=== PATIENT | female | born 1955 | race Caucasian/White ===

== ENCOUNTER 2017-04-05 11:52 | Emergency (ER) | payer MEDICARE, BC ==
[2017-04-05 12:17] VITALS: BP 136/78
--- NOTE | 2017-04-05 12:46 | EDM.PDOC ---
ED HPI GENERAL MEDICAL PROBLEM - General Chief Complaint: Respiratory Problem Stated Complaint: FEVER/COUGH Time Seen by Provider: 04/05/17 12:35 Source of Information: Reports: Patient History Limitations: Reports: No Limitations - History of Present Illness INITIAL COMMENTS - FREE TEXT/NARRATIVE: Patient is a 62-year-old female with a history of schizophrenia and mood disorder who presents to the ED complaining of a nonproductive cough that started earlier this weekend. Patient is a resident of [place] and thus had influenza testing and started on Tamiflu. Patient's influenza was negative. She was exposed to multiple family members with influenza during . Sister is present and states nursing staff was unable to control her fever. Highest temperature was reported 100.0F prior to Tylenol administration. Patient denies any fever/chills, nausea/vomiting, chest pain, shortness of breath, sore throat, sinus congestion, ear pain, abdominal pain, pain with urination, or any additional complaints. She's been eating and drinking well. - Related Data Allergies Allergy/AdvReac Type Severity Reaction Status Date / Time clindamycin Allergy Cannot Verified 04/05/17 12:18 Remember clozapine Allergy Cannot Verified 04/05/17 12:18 Remember cortisone Allergy Cannot Verified 04/05/17 12:18 Remember fluoxetine HCl [From Prozac] Allergy Cannot Verified 04/05/17 12:18 Remember hydrocodone Allergy Cannot Verified 04/05/17 12:18 Remember mirtazapine Allergy Cannot Verified 04/05/17 12:18 Remember Penicillins Allergy Cannot Verified 04/05/17 12:18 Remember sulfamethoxazole Allergy Cannot Verified 04/05/17 12:18 [From Bactrim] Remember trimethoprim Allergy Cannot Verified 04/05/17 12:18 Remember metals Allergy Cannot Uncoded 09/23/14 23:35 CDT Remember Home Meds: Home Meds Aspirin [Rosario Chewable Aspirin] 81 mg PO DAILY 03/19/14 [History] LORazepam [Ativan] 2 mg PO TID 03/19/14 [History] Oxybutynin [Oxybutynin ER] 10 mg PO BEDTIME 03/19/14 [History] atorvaSTATin [Lipitor] 20 mg PO ONETIME 03/19/14 [History] fluPHENAZine HCl [fluPHENAZine] 5 mg PO DAILY 03/19/14 [History] traZODone 300 mg PO DAILY 03/19/14 [History] fluPHENAZine Decanoate [Fluphenazine Decanoate] 15 mg PO BEDTIME 03/20/14 [ History] Acetaminophen [Tylenol] 650 mg PO DAILY 04/05/17 [History] Albuterol [Ventolin HFA] 2 puff INH BEDTIME 04/05/17 [History] Albuterol [Ventolin HFA] 2 puff INH Q4H PRN 04/05/17 [History] Amantadine HCl [Amantadine] 100 mg PO DAILY 04/05/17 [History] Benzonatate [Tessalon Perles] 200 mg PO BID PRN #20 cap 04/05/17 [Rx] Budesonide/Formoterol Fumarate [Symbicort 160-4.5 Mcg Inhaler] 2 puff INH BID [History] Cholecalciferol (Vitamin D3) [Vitamin D3] 5,000 units PO DAILY 04/05/17 [History ] Cranberry Conc/C/Bacill Coag [Cranberry Tablet] 1 tab PO BID 04/05/17 [History] Cyanocobalamin (Vitamin B12) [Vitamin B12] 1,000 mcg PO DAILY 04/05/17 [History] Docusate Sodium [Colace] 100 mg PO BID 04/05/17 [History] Etodolac [Lodine] 400 mg PO Q8H PRN 04/05/17 [History] Liraglutide [Victoza] 1.2 mg SUBCUT BEDTIME 04/05/17 [History] Losartan [Cozaar] 50 mg PO DAILY 04/05/17 [History] Metoprolol Succinate [Toprol XL] 75 mg PO DAILY 04/05/17 [History] OLANZapine [ZyPREXA] 20 mg PO BID 04/05/17 [History] Omeprazole 20 mg PO DAILY 04/05/17 [History] Oseltamivir [Tamiflu] 75 mg PO BID 04/05/17 [History] metFORMIN [Glucophage XR] 1,000 mg PO BID 04/05/17 [History] Past Medical History HEENT History: Reports: Impaired Vision Other Neuro History: mood disorder Psychiatric History: Reports: Schizophrenia, Suicide Attempt Social & Family History - Tobacco Use Smoking Status *Q: Never Smoker Second Hand Smoke Exposure: No - Caffeine Use Caffeine Use: Reports: Coffee - Alcohol Use Days Per Week of Alcohol Use: 0 - Recreational Drug Use Recreational Drug Use: No ED ROS GENERAL - Review of Systems Review Of Systems: See Below Constitutional: Denies: Fever, Chills, Decreased Appetite HEENT: Reports: No Symptoms Respiratory: Reports: Cough. Denies: Shortness of Breath, Sputum Cardiovascular: Reports: No Symptoms GI/Abdominal: Reports: No Symptoms : Reports: No Symptoms Musculoskeletal: Reports: No Symptoms Skin: Reports: No Symptoms ED EXAM, GENERAL - Physical Exam Exam: See Below Exam Limited By: No Limitations General Appearance: Alert, WD/WN, No Apparent Distress Eye Exam: Bilateral Eye: PERRL Ears: Hearing Grossly Normal, Other (Canals occluded by cerumen.) Nose: Normal Inspection, Normal Mucosa, No Blood. No: Nasal Drainage, Clear Rhinorrhea Throat/Mouth: Normal Inspection, Normal Oropharynx, Normal Voice, No Airway Compromise Neck: Normal Inspection, Supple Respiratory/Chest: No Respiratory Distress, Lungs Clear, Normal Breath Sounds, No Accessory Muscle Use, Chest Non-Tender Cardiovascular: Normal Peripheral Pulses, Regular Rate, Rhythm Peripheral Pulses: 4+: Radial (R) GI/Abdominal: Normal Bowel Sounds, Soft, Non-Tender, No Organomegaly, No Distention Back Exam: Normal Inspection Extremities: Normal Inspection, Non-Tender, No Pedal Edema, Normal Capillary Refill Neurological: Alert, Oriented, CN II-XII Intact, Normal Cognition, No Motor/ Sensory Deficits Psychiatric: Normal Affect, Normal Mood Skin Exam: Warm, Dry, Intact, Normal Color, No Rash Course - Vital Signs Last Recorded V/S: Last Vital Signs Temp 98.4 F 04/05/17 12:12 Pulse 96 04/05/17 12:12 Resp 20 04/05/17 12:12 BP 136/78 04/05/17 12:12 Pulse Ox 96 04/05/17 12:12 - Orders/Labs/Meds Orders: Active Orders 24 hr Category Date Time Status Ear Irrigation [RC] ASDIRECTED Care 04/05/17 12:44 Active Labs: Laboratory Tests 04/05/17 04/05/17 Range/Units 13:00 13:00 WBC 3.83 L (3.98-10.04) K/mm3 RBC 4.25 (3.98-5.22) M/mm3 Hgb 12.1 (11.2-15.7) gm/L Hct 36.8 (34.1-44.9) % MCV 86.6 (79.4-94.8) fl MCH 28.5 (25.6-32.2) pg MCHC 32.9 (32.2-35.5) g/dl RDW Std Deviation 45.0 (36.4-46.3) fL Plt Count 138 L (182-369) K/mm3 MPV 10.5 (9.4-12.3) fl Neut % (Auto) 51.2 (34.0-71.1) % Lymph % (Auto) 27.9 (19.3-51.7) % [place] % (Auto) 19.6 H (4.7-12.5) % Eos % (Auto) 0.3 L (0.7-5.8) Baso % (Auto) 0.5 (0.1-1.2) % Neut # (Auto) 1.96 (1.56-6.13) K/mm3 Lymph # (Auto) 1.07 L (1.18-3.74) K/mm3 [place] # (Auto) 0.75 H (0.24-0.36) K/mm3 Eos # (Auto) 0.01 L (0.04-0.36) K/mm3 Baso # (Auto) 0.02 (0.01-0.08) K/mm3 Manual Slide Review Normal smear Sodium 141 (136-145) mEq/L Potassium 3.9 (3.5-5.1) mEq/L Chloride 106 (98-107) mEq/L Carbon Dioxide 25 (21-32) mEq/L Anion Gap 13.9 (5-15) BUN 9 (7-18) mg/dL Creatinine 0.7 (0.55-1.02) mg/dL Est Cr Clr Drug Dosing 67.59 mL/min Estimated GFR (MDRD) > 60 (>60) mL/min BUN/Creatinine Ratio 12.9 L (14-18) Glucose 153 H (74-106) mg/dL Calcium 9.0 (8.5-10.1) mg/dL Total Bilirubin 0.4 (0.2-1.0) mg/dL AST 130 H (15-37) U/L ALT 149 H (14-59) U/L Alkaline Phosphatase 135 H (46-116) U/L C-Reactive Protein 3.4 H* (<1.0) mg/dL Total Protein 6.5 (6.4-8.2) g/dl Albumin 3.7 (3.4-5.0) g/dl Globulin 2.8 gm/dL Albumin/Globulin Ratio 1.3 (1-2) - Re-Assessments/Exams Free Text/Narrative Re-Assessment/Exam: Will obtain chest x-ray two-view along with basic labs including: CBC, CRP, and chem 14. Bilateral cerumen impaction. Ordered irrigation. CXR: reviewed with Dr. Martinez. No acute findings noted. Labs reviewed: White blood cell count 3.83, hemoglobin 12.1, platelet counts 138 , monocyte percentage is mildly elevated along with the monocyte number with normal smear. Chemistry panel revealed: Sodium 141, potassium 3.9, AG 13.9, creatinine 0.7, glucose 153, AST 130, ALT 149, ALK phos 135. LFTs mildly elevated. CRP 3.4. Suspect cause of elevated LFTs is secondary to patient taking Tamiflu. SHe is also been taking acetaminophen. Reassessment, patient is doing well. Will discharge patient home with instructions as documented. Departure - Departure Time of Disposition: 14:23 Disposition: Home, Self-Care 01 Condition: Good Clinical Impression: Bronchitis, Elevated LFTs - Discharge Information Prescriptions: Benzonatate [Tessalon Perles] 200 mg PO BID PRN #20 cap PRN Reason: Cough Instructions: Acute Bronchitis, [id number] Referrals: Paco Hand MD [Primary Care Provider] - Forms: ED Department Discharge Additional Instructions: Continue taking the albuterol inhaler and budesonide as prescribed. Push the fluids. Ensure adequate rest. Follow-up with PCP for reevaluation the end of this week or first part of next week. Continue taking the Tamiflu as prescribed and acetaminophen for any fevers or discomfort. LFTs were mildly elevated thus suggest routine follow-up to ensure they trend downward. Return to the ED if you develop any new or worsening symptoms. Take the Tessalon Perles as prescribed for cough suppression. - My Orders Last 24 Hours: My Active Orders 04/05/17 12:44 Ear Irrigation [RC] ASDIRECTED - Assessment/Plan Last 24 Hours: My Active Orders 04/05/17 12:44 Ear Irrigation [RC] ASDIRECTED
--- NOTE | 2017-04-05 13:26 | CR ---
Chest: Two views of the chest were obtained. Comparison: No previous chest x-ray. Limited inspiratory study is noted. Within this limitation, lungs are felt to be clear. Heart size and mediastinum are normal. Bony structures are within normal limits for the patient's age. Impression: 1. Limited inspiratory study. Within these limitations, nothing acute is suspected. Diagnostic code #2
== END 2017-04-05 14:55 | disposition home or self-care (01) ==
LOC: JD.ED 11:52
DX: J40 Bronchitis, not specified as acute or chronic (principal); R94.5 Abnormal results of liver function studies; Z79.82 Long term (current) use of aspirin; Z79.899 Other long term (current) drug therapy; Z88.2 Allergy status to sulfonamides; Z88.8 Allergy status to other drugs, medicaments and biological substances; Z91.09 Other allergy status, other than to drugs and biological substances; Z88.1 Allergy status to other antibiotic agents; Z88.6 Allergy status to analgesic agent; Z88.0 Allergy status to penicillin
CPT/HCPCS: 36415; 71020; 71020-26; 80053; 85025; 86140; 99283; 99284

== ENCOUNTER 2017-06-10 17:40 | Inpatient (IN) | payer MEDICARE, BC, MEDICAID ==
[2017-06-10] MEDS ORDERED: Sodium Chloride 0.9% 10 ML Syringe FLUSH PRN (18:02)
[2017-06-10] MEDS ORDERED: Albuterol/Ipratropium 3.0-0.5 MG/3 ML Neb Soln NEB ONE (18:04)
[2017-06-10] MEDS: Sodium Chloride 0.9% 1,000 ML IV SCH (18:28)
--- NOTE | 2017-06-10 18:56 | EDM.PDOC ---
ED HPI GENERAL MEDICAL PROBLEM - General Chief Complaint: Respiratory Problem Stated Complaint: RESPIRATORY ISSUES Time Seen by Provider: 06/10/17 17:57 Source of Information: Reports: Patient, Family, Longterm Records History Limitations: Reports: No Limitations - History of Present Illness INITIAL COMMENTS - FREE TEXT/NARRATIVE: The patient presents with a cough and fever. This has been going on for over a week. She is a resident of [facility]. She sees Dr Hand and he started her on a z-zuleima. She has a couple days left but she is not any better. She feels short of breath. She does not smoke. She has a history of asthma as a child. She also has redness to her eye and she was put on gentamicin but that was not started. She has no chest pain, abdominal pain, nausea or vomiting. Onset: Gradual Duration: Week(s): (1) Severity: Moderate Improves with: Reports: None Worsens with: Reports: None Associated Symptoms: Reports: Cough, Fever/Chills, Shortness of Breath. Denies : Chest Pain, Headaches, Nausea/Vomiting Throat Pain Score (Numeric/FACES): 8 - Related Data Allergies Allergy/AdvReac Type Severity Reaction Status Date / Time clindamycin Allergy Cannot Verified 06/10/17 17:53 Remember clozapine Allergy Cannot Verified 06/10/17 17:53 Remember cortisone Allergy Cannot Verified 06/10/17 17:53 Remember fluoxetine HCl [From Prozac] Allergy Cannot Verified 06/10/17 17:53 Remember hydrocodone Allergy Cannot Verified 06/10/17 17:53 Remember mirtazapine Allergy Cannot Verified 06/10/17 17:53 Remember Penicillins Allergy Cannot Verified 06/10/17 17:53 Remember sulfamethoxazole Allergy Cannot Verified 06/10/17 17:53 [From Bactrim] Remember trimethoprim Allergy Cannot Verified 06/10/17 17:53 Remember metals Allergy Cannot Uncoded 09/23/14 23:35 CDT Remember Home Meds: Home Meds Aspirin [Rosario Chewable Aspirin] 81 mg PO DAILY 03/19/14 [History] Oxybutynin [Oxybutynin ER] 10 mg PO BEDTIME 03/19/14 [History] atorvaSTATin [Lipitor] 20 mg PO ONETIME 03/19/14 [History] traZODone 300 mg PO DAILY 12/10/14 [History] fluPHENAZine Decanoate [Fluphenazine Decanoate] 15 mg PO BEDTIME 03/20/14 [ History] Acetaminophen [Tylenol] 650 mg PO DAILY 04/05/17 [History] Albuterol [Ventolin HFA] 2 puff INH BEDTIME 04/05/17 [History] Albuterol [Ventolin HFA] 2 puff INH Q4H PRN 04/05/17 [History] Benzonatate [Tessalon Perles] 200 mg PO BID PRN #20 cap 04/05/17 [Rx] Budesonide/Formoterol Fumarate [Symbicort 160-4.5 Mcg Inhaler] 2 puff INH BID [History] Cholecalciferol (Vitamin D3) [Vitamin D3] 5,000 units PO DAILY 04/05/17 [History ] Cranberry Conc/C/Bacill Coag [Cranberry Tablet] 1 tab PO BID 04/05/17 [History] Cyanocobalamin (Vitamin B12) [Vitamin B12] 1,000 mcg PO DAILY 04/05/17 [History] Docusate Sodium [Colace] 100 mg PO BID 04/05/17 [History] Liraglutide [Victoza] 1.2 mg SUBCUT BEDTIME 04/05/17 [History] Metoprolol Succinate [Toprol XL] 75 mg PO DAILY 04/05/17 [History] OLANZapine [ZyPREXA] 20 mg PO BID 04/05/17 [History] Omeprazole 20 mg PO DAILY 04/05/17 [History] metFORMIN [Glucophage XR] 1,000 mg PO BID 04/05/17 [History] Albuterol Sulfate 2.5 mg IH QID PRN 06/10/17 [History] Azithromycin [Zithromax] 250 mg PO DAILY 06/10/17 [History] Gentamicin Sulfate/PF [Gentamicin] 3 drop EYELF BID 06/10/17 [History] guaiFENesin [Mucinex] 600 mg PO BID 06/10/17 [History] Past Medical History HEENT History: Reports: Impaired Vision Other Neuro History: mood disorder Psychiatric History: Reports: Schizophrenia, Suicide Attempt - Infectious Disease History Infectious Disease History: Reports: Other (See Below) Other Infectious Disease History: lives in longterm Social & Family History - Tobacco Use Smoking Status *Q: Never Smoker Second Hand Smoke Exposure: No - Caffeine Use Caffeine Use: Reports: Coffee - Alcohol Use Days Per Week of Alcohol Use: 0 - Recreational Drug Use Recreational Drug Use: No ED ROS GENERAL - Review of Systems Review Of Systems: See Below Constitutional: Reports: Fever, Chills HEENT: Reports: No Symptoms Respiratory: Reports: Shortness of Breath, Cough Cardiovascular: Reports: No Symptoms Endocrine: Reports: No Symptoms GI/Abdominal: Reports: No Symptoms : Reports: No Symptoms Musculoskeletal: Reports: No Symptoms ED EXAM, GENERAL - Physical Exam Exam: See Below Exam Limited By: No Limitations General Appearance: Alert, No Apparent Distress Eye Exam: Bilateral Eye: Other (Conjunctiva is injected on the left with some erythema of the eyelids.) Ears: Normal External Exam Nose: Normal Inspection Head: Atraumatic, Normocephalic Neck: Normal Inspection Respiratory/Chest: No Respiratory Distress, Rhonchi Cardiovascular: Regular Rate, Rhythm, No Edema, No Murmur GI/Abdominal: Soft, Non-Tender, No Organomegaly, No Mass Back Exam: Normal Inspection Extremities: Normal Inspection Course - Vital Signs Last Recorded V/S: Last Vital Signs Temp 97.5 F 06/10/17 18:00 Pulse 106 H 06/10/17 18:00 Resp BP 120/105 H 06/10/17 18:00 Pulse Ox 92 L 06/10/17 18:45 - Orders/Labs/Meds Orders: Active Orders 24 hr Category Date Time Status Cardiac Monitoring [RC] . DIRECTED Care 06/10/17 18:02 Active Oxygen Therapy [RC] PRN Care 06/10/17 18:02 Active Peripheral IV Care [RC] . DIRECTED Care 06/10/17 18:03 Active RT Aerosol Therapy [RC] ASDIRECTED Care 06/10/17 18:04 Active Chest 1V Frontal [CR] Stat Exams 06/10/17 18:03 Taken CULTURE BLOOD [BC] Stat Lab 06/10/17 18:16 Received CULTURE BLOOD [BC] Stat Lab 06/10/17 18:16 Received Sodium Chloride 0.9% [Normal Saline] 1,000 ml Med 06/10/17 18:15 Active IV ASDIRECTED Sodium Chloride 0.9% [Saline Flush] Med 06/10/17 18:02 Active 10 ml FLUSH ASDIRECTED PRN cefTRIAXone [Rocephin] 2 gm Med 06/10/17 18:57 Active Sodium Chloride 0.9% [Normal Saline] 100 ml IV ONETIME Blood Culture x2 Reflex Set [OM.PC] Stat Oth 06/10/17 18:03 Ordered Peripheral IV Insertion Adult [OM.PC] Stat Oth 06/10/17 18:02 Ordered Medication Orders Sodium Chloride (Normal Saline) 1,000 mls @ 125 mls/hr IV ASDIRECTED RAVINDRA Last Admin: 06/10/17 18:28 Dose: 125 mls/hr Ceftriaxone Sodium 2 gm/ (Sodium Chloride) 100 mls @ 100 mls/hr IV ONETIME ONE Stop: 06/10/17 19:56 Last Admin: 06/10/17 19:06 Dose: 100 mls/hr Sodium Chloride (Saline Flush) 10 ml FLUSH ASDIRECTED PRN PRN Reason: Keep Vein Open Last Admin: 06/10/17 18:28 Dose: 10 ml Labs: Laboratory Tests 06/10/17 06/10/17 Range/Units 18:16 18:16 WBC 6.75 (3.98-10.04) K/mm3 RBC 4.61 (3.98-5.22) M/mm3 Hgb 12.6 (11.2-15.7) gm/L Hct 39.9 (34.1-44.9) % MCV 86.6 (79.4-94.8) fl MCH 27.3 (25.6-32.2) pg MCHC 31.6 L (32.2-35.5) g/dl RDW Std Deviation 46.6 H (36.4-46.3) fL Plt Count 227 (182-369) K/mm3 MPV 10.3 (9.4-12.3) fl Neut % (Auto) 53.6 (34.0-71.1) % Lymph % (Auto) 27.9 (19.3-51.7) % [place] % (Auto) 17.0 H (4.7-12.5) % Eos % (Auto) 0.1 L (0.7-5.8) Baso % (Auto) 0.7 (0.1-1.2) % Neut # (Auto) 3.61 (1.56-6.13) K/mm3 Lymph # (Auto) 1.88 (1.18-3.74) K/mm3 [place] # (Auto) 1.15 H (0.24-0.36) K/mm3 Eos # (Auto) 0.01 L (0.04-0.36) K/mm3 Baso # (Auto) 0.05 (0.01-0.08) K/mm3 Manual Slide Review Normal smear Sodium 143 (136-145) mEq/L Potassium 4.0 (3.5-5.1) mEq/L Chloride 107 (98-107) mEq/L Carbon Dioxide 29 (21-32) mEq/L Anion Gap 11.0 (5-15) BUN 12 (7-18) mg/dL Creatinine 0.9 (0.55-1.02) mg/dL Est Cr Clr Drug Dosing 52.57 mL/min Estimated GFR (MDRD) > 60 (>60) mL/min BUN/Creatinine Ratio 13.3 L (14-18) Glucose 150 H (74-106) mg/dL Calcium 9.1 (8.5-10.1) mg/dL Total Bilirubin 0.5 (0.2-1.0) mg/dL AST 57 H (15-37) U/L ALT 83 H (14-59) U/L Alkaline Phosphatase 133 H (46-116) U/L Total Protein 6.9 (6.4-8.2) g/dl Albumin 3.5 (3.4-5.0) g/dl Globulin 3.4 gm/dL Albumin/Globulin Ratio 1.0 (1-2) Meds: Medications Generic Name Dose Route Start Last Admin Trade Name Freq PRN Reason Stop Dose Admin Sodium Chloride 1,000 mls @ 125 mls/hr 06/10/17 18:15 06/10/17 18:28 Normal Saline IV 125 mls/hr ASDIRECTED RAVINDRA Administration Ceftriaxone Sodium 2 gm/ 100 mls @ 100 mls/hr 06/10/17 18:57 06/10/17 19:06 Sodium Chloride IV 06/10/17 19:56 100 mls/hr ONETIME ONE Administration Sodium Chloride 10 ml 06/10/17 18:02 06/10/17 18:28 Saline Flush FLUSH 10 ml ASDIRECTED PRN Administration Keep Vein Open Discontinued Medications Generic Name Dose Route Start Last Admin Trade Name Freq PRN Reason Stop Dose Admin Albuterol/Ipratropium 3 ml 06/10/17 18:04 06/10/17 18:43 Duoneb 3.0-0.5 Mg/3 Ml NEB 06/10/17 18:05 3 ml ONETIME ONE Administration - Re-Assessments/Exams Free Text/Narrative Re-Assessment/Exam: 06/10/17 18:55 I ordered an IV NS at 125mL/hr, labs, CXR, duoneb, blood cultures and influenza. 06/10/17 19:01 Her CBC looks good. Her glucose is elevated at 150. Her AST and ALT were elevated. Her CXR shows very poor inspiration. There may be an infiltrate in the right middle lobe. Her influenza is negative. I went back to talk to her and her oxygen saturations were 88% on room air. I put he on 2L by OK and I ordered rocephin 2 gram IV. I feel she needs to be admitted. I called Dr Vann and she accepted the patient. Departure - Departure Time of Disposition: 19:15 Disposition: Admitted As Inpatient 68 Condition: Fair Clinical Impression: Elevated LFTs, Hypoxia, Failure of outpatient treatment Pneumonia Qualifiers: Pneumonia type: due to unspecified organism Laterality: right Lung location: middle lobe of lung Qualified Code(s): J18.1 - Lobar pneumonia, unspecified organism - Discharge Information Referrals: Paco Hand MD [Primary Care Provider] - Forms: ED Department Discharge - My Orders Last 24 Hours: My Active Orders 06/10/17 18:02 Cardiac Monitoring [RC] . DIRECTED Oxygen Therapy [RC] PRN Sodium Chloride 0.9% [Saline Flush] 10 ml FLUSH ASDIRECTED PRN Peripheral IV Insertion Adult [OM.PC] Stat 06/10/17 18:03 Peripheral IV Care [RC] . DIRECTED Chest 1V Frontal [CR] Stat Blood Culture x2 Reflex Set [OM.PC] Stat 06/10/17 18:04 RT Aerosol Therapy [RC] ASDIRECTED 06/10/17 18:15 Sodium Chloride 0.9% [Normal Saline] 1,000 ml IV ASDIRECTED 06/10/17 18:16 CULTURE BLOOD [BC] Stat CULTURE BLOOD [BC] Stat 06/10/17 18:57 cefTRIAXone [Rocephin] 2 gm Sodium Chloride 0.9% [Normal Saline] 100 ml IV ONETIME - Assessment/Plan Last 24 Hours: My Active Orders 06/10/17 18:02 Cardiac Monitoring [RC] . DIRECTED Oxygen Therapy [RC] PRN Sodium Chloride 0.9% [Saline Flush] 10 ml FLUSH ASDIRECTED PRN Peripheral IV Insertion Adult [OM.PC] Stat 06/10/17 18:03 Peripheral IV Care [RC] . DIRECTED Chest 1V Frontal [CR] Stat Blood Culture x2 Reflex Set [OM.PC] Stat 06/10/17 18:04 RT Aerosol Therapy [RC] ASDIRECTED 06/10/17 18:15 Sodium Chloride 0.9% [Normal Saline] 1,000 ml IV ASDIRECTED 06/10/17 18:16 CULTURE BLOOD [BC] Stat CULTURE BLOOD [BC] Stat 06/10/17 18:57 cefTRIAXone [Rocephin] 2 gm Sodium Chloride 0.9% [Normal Saline] 100 ml IV ONETIME
[2017-06-10] MEDS ORDERED: cefTRIAXone 2 GM in Sodium Chloride 0.9% 100 ML IV ONE (18:57)
--- NOTE | 2017-06-10 20:31 | PCM.HP ---
H&P History of Present Illness - General Date of Service: 06/10/17 Admit Problem/Dx: Admission Diagnosis/Problem Admission Diagnosis/Problem Pneumonia Source of Information: Provider History Limitations: Reports: No Limitations - History of Present Illness Initial Comments - Free Text/Narative: 62 year old [place] resident at [place] presents with fever and chills. She complains of a cough with sputum; there has been no improvement after a Z pack. There is a questionable RML infiltrate. The pulse oximetry documented an O2 saturation of 88%. She will be admitted to [facility] for failed OP therapy. Onset of Symptoms: Reports: Gradual Symptom Onset Date: 06/07/17 Duration of Symptoms: Reports: Day(s):, Getting Worse Location: Reports: Chest, Generalized Severity: Moderate Improves with: Reports: Medication Worsens with: Reports: None Context: Reports: Sick Contact Associated Symptoms: Reports: cough w sputum, Fever/Chills, Loss of Appetite, Malaise, Nausea/Vomiting, Shortness of Breath, Weakness Throat Pain Score (Numeric/FACES): 8 - Related Data Allergies/Adverse Reactions: Allergies Allergy/AdvReac Type Severity Reaction Status Date / Time clindamycin Allergy Cannot Verified 06/11/17 12:36 Remember clozapine Allergy Cannot Verified 06/11/17 12:36 Remember cortisone Allergy Cannot Verified 06/11/17 12:36 Remember fluoxetine HCl [From Prozac] Allergy Cannot Verified 06/11/17 12:36 Remember hydrocodone Allergy Cannot Verified 06/11/17 12:36 Remember mirtazapine Allergy Cannot Verified 06/11/17 12:36 Remember Penicillins Allergy Cannot Verified 06/11/17 12:36 Remember sulfamethoxazole Allergy Cannot Verified 06/11/17 12:36 [From Bactrim] Remember trimethoprim Allergy Cannot Verified 06/11/17 12:36 Remember metals Allergy Cannot Uncoded 06/11/17 12:36 Remember Home Medications: Home Meds Aspirin [Rosario Chewable Aspirin] 81 mg PO DAILY 03/19/14 [History] Oxybutynin [Oxybutynin ER] 10 mg PO BEDTIME 03/19/14 [History] atorvaSTATin [Lipitor] 20 mg PO DAILY 03/19/14 [History] traZODone 300 mg PO DAILY 03/19/14 [History] fluPHENAZine Decanoate [Fluphenazine Decanoate] 15 mg PO BEDTIME 12/11/14 [ History] Acetaminophen [Tylenol] 650 mg PO DAILY 04/05/17 [History] Albuterol [Ventolin HFA] 2 puff INH BEDTIME 04/05/17 [History] Albuterol [Ventolin HFA] 2 puff INH Q4H PRN 04/05/17 [History] Budesonide/Formoterol Fumarate [Symbicort 160-4.5 Mcg Inhaler] 2 puff INH BID [History] Cholecalciferol (Vitamin D3) [Vitamin D3] 5,000 units PO DAILY 04/05/17 [History ] Cranberry Conc/C/Bacill Coag [Cranberry Tablet] 1 tab PO BID 04/05/17 [History] Cyanocobalamin (Vitamin B12) [Vitamin B12] 1,000 mcg PO DAILY 04/05/17 [History] Docusate Sodium [Colace] 100 mg PO BID 04/05/17 [History] Liraglutide [Victoza] 1.2 mg SUBCUT BEDTIME 04/05/17 [History] Metoprolol Succinate [Toprol XL] 75 mg PO DAILY 04/05/17 [History] OLANZapine [ZyPREXA] 20 mg PO BID 04/05/17 [History] Omeprazole 20 mg PO DAILY 04/05/17 [History] metFORMIN [Glucophage XR] 1,000 mg PO BID 04/05/17 [History] Albuterol Sulfate 2.5 mg IH QID PRN 06/10/17 [History] Azithromycin [Zithromax] 250 mg PO DAILY 06/10/17 [History] Benzonatate 100 mg PO TID PRN 06/10/17 [History] Gentamicin Sulfate/PF [Gentamicin] 3 drop EYELF BID 06/10/17 [History] guaiFENesin [Mucinex] 600 mg PO BID 06/10/17 [History] Past Medical History HEENT History: Reports: Impaired Vision Other Neuro History: mood disorder Psychiatric History: Reports: Schizophrenia, Suicide Attempt - Infectious Disease History Infectious Disease History: Reports: Other (See Below) Other Infectious Disease History: [place] Social & Family History - Tobacco Use Smoking Status *Q: Never Smoker Second Hand Smoke Exposure: No - Caffeine Use Caffeine Use: Reports: Coffee - Alcohol Use Days Per Week of Alcohol Use: 0 - Recreational Drug Use Recreational Drug Use: No H&P Review of Systems - Review of Systems: Review Of Systems: See Below General: Reports: Fever, Chills, Malaise, Weakness, Decreased Appetite HEENT: Reports: No Symptoms Pulmonary: Reports: Shortness of Breath, Pleuritic Chest Pain Cardiovascular: Reports: No Symptoms Gastrointestinal: Reports: No Symptoms Genitourinary: Reports: No Symptoms Musculoskeletal: Reports: No Symptoms Skin: Reports: No Symptoms Psychiatric: Reports: No Symptoms Neurological: Reports: No Symptoms Hematologic/Lymphatic: Reports: No Symptoms Immunologic: Reports: No Symptoms Exam - Exam Exam: See Below - Vital Signs Vital Signs: Last Vital Signs Temp 36.4 C 06/10/17 18:00 Pulse 106 H 06/10/17 18:00 Resp BP 120/105 H 06/10/17 18:00 Pulse Ox 95 06/10/17 19:07 Weight: 105.233 kg - Exam Quality Assessment: Supplemental Oxygen, DVT Prophylaxis General: Alert, Oriented, Cooperative HEENT: Conjunctiva Clear, Nares Patent, Normal Nasal Septum, Pupils Equal, Pupils Reactive, PERRLA Neck: Trachea Midline Lungs: Normal Respiratory Effort, Decreased Breath Sounds, Rhonchi, Wheezing Cardiovascular: Regular Rate, Regular Rhythm GI/Abdominal Exam: Normal Bowel Sounds, Soft, Non-Tender, No Organomegaly, No Distention (Female) Exam: Deferred Rectal (Female) Exam: Deferred Back Exam: Normal Inspection Extremities: Normal Inspection, Normal Range of Motion, Non-Tender, No Pedal Edema Skin: Warm Neurological: Cranial Nerves Intact, Normal Speech Neuro Extensive - Mental Status: Alert, Oriented x3, Normal Mood/Affect, Normal Cognition, Memory Intact Neuro Extensive - Motor, Sensory, Reflexes: CN II-XII Intact Psychiatric: Alert, Normal Affect, Normal Mood - Patient Data Result Diagrams: 06/11/17 06:30 06/11/17 06:30 *Q Meaningful Use (ADM) - VTE *Q VTE Criteria *Q: - Stroke *Q Stroke Criteria *Q: - AMI *Q AMI Criteria *Q: - Problem List (1) Failure of outpatient treatment SNOMED Code(s): 865475992 ICD Code: Z78.9 - OTHER SPECIFIED HEALTH STATUS Status: Acute Current Visit: Yes (2) Hypoxia SNOMED Code(s): 512407715 ICD Code: R09.02 - HYPOXEMIA Status: Acute Current Visit: Yes (3) Pneumonia SNOMED Code(s): 545359257 ICD Code: J18.9 - PNEUMONIA, UNSPECIFIED ORGANISM Status: Acute Current Visit: Yes Qualifiers: Pneumonia type: due to unspecified organism Laterality: right Lung location: middle lobe of lung Qualified Code(s): J18.1 - Lobar pneumonia, unspecified organism Problem List Initiated/Reviewed/Updated: Yes Orders Last 24hrs: Active Orders 24 hr Category Date Time Status UA W/MICROSCOPIC [URIN] Routine Lab 06/10/17 20:26 Ordered Medication Orders Sodium Chloride (Normal Saline) 1,000 mls @ 125 mls/hr IV ASDIRECTED RAVINDRA Last Admin: 06/10/17 18:28 Dose: 125 mls/hr Sodium Chloride (Saline Flush) 10 ml FLUSH ASDIRECTED PRN PRN Reason: Keep Vein Open Last Admin: 06/10/17 18:28 Dose: 10 ml Assessment/Plan Comment:: Impression: SNF resident with PNA (RML/LLL) associated with hypoxia Failed outpatient treatment with Z pack History of Schizoaffective disorder DM type II HLD Plan: IVF IV ATBs NEBS as needed CXR 2 view Pulmonary Toilet Home meds Daily labs Consult PT/OT/CM DVT/GI prophylaxis
[2017-06-10] MEDS ORDERED: 50% Dextrose in Water 50 ML Syringe IVPUSH PRN (20:35)
[2017-06-10] MEDS ORDERED: Albuterol 0.083% 2.5 MG/3 ML Neb Soln NEB PRN (20:39)
[2017-06-10] MEDS ORDERED: Acetaminophen Soln 650 MG/20.3 ML UD Cup PO PRN (20:50)
[2017-06-10] MEDS ORDERED: LIRAGLUTIDE 1.2 MG SUBCUT SCH (21:00)
[2017-06-10] MEDS ORDERED: Budesonide/Formoterol 160-4.5 MCG/Puff 6 GM Inhaler INH SCH (21:00)
[2017-06-10] MEDS: Levofloxacin/Dextrose 5%-Water 750 MG in Premix Bag 1 BAG IV SCH (21:40)
[2017-06-10] MEDS: Insulin Aspart 100 Units/ML 3 ML Pen SUBCUT SCH (21:42)
[2017-06-10] MEDS: Docusate Sodium 100 MG Cap PO SCH (21:45)
[2017-06-10] MEDS: guaiFENesin 600 MG Tab.ER PO SCH (21:45)
[2017-06-10] MEDS: metFORMIN 500 MG Tab PO SCH (21:46)
[2017-06-10] MEDS: OLANZapine 5 MG Tab PO SCH (21:47)
[2017-06-10] MEDS: Oxybutynin 5 MG Tab.ER PO SCH (21:48)
[2017-06-10] MEDS: Benzonatate 100 MG Cap PO PRN (21:48)
[2017-06-10] MEDS: Albuterol/Ipratropium 3.0-0.5 MG/3 ML Neb Soln NEB SCH (21:55)
[2017-06-11] MEDS: Sodium Chloride 0.9% 1,000 ML IV SCH ×2 (01:43→09:34)
[2017-06-11] MEDS: Insulin Aspart 100 Units/ML 3 ML Pen SUBCUT SCH ×4 (08:09→21:30)
[2017-06-11] MEDS: Albuterol/Ipratropium 3.0-0.5 MG/3 ML Neb Soln NEB SCH ×4 (08:43→20:23)
[2017-06-11] MEDS: Formoterol/Mometasone 200-5 MCG 8.8 GM Inhaler IH SCH ×2 (08:44→20:23)
[2017-06-11] MEDS: Enoxaparin 40 MG/0.4 ML Syringe SUBCUT SCH (09:35)
[2017-06-11] MEDS: Gentamicin 0.3% Ophth Soln 15 ML Bottle EYELF SCH ×3 (09:35→21:32)
[2017-06-11] MEDS: Cholecalciferol (Vitamin D3) 1,000 Unit Tab PO SCH (09:36)
[2017-06-11] MEDS: Docusate Sodium 100 MG Cap PO SCH ×2 (09:36→21:29)
[2017-06-11] MEDS: traZODone 50 MG Tab PO SCH (09:36)
[2017-06-11] MEDS: OLANZapine 5 MG Tab PO SCH ×2 (09:37→21:30)
[2017-06-11] MEDS: Metoprolol Succinate 25 MG Tab.ER PO SCH (09:37)
[2017-06-11] MEDS: guaiFENesin 600 MG Tab.ER PO SCH ×2 (09:37→21:30)
[2017-06-11] MEDS: Cyanocobalamin (Vitamin B12) 1,000 MCG Tab PO SCH (09:37)
[2017-06-11] MEDS: metFORMIN 500 MG Tab PO SCH ×2 (09:37→21:28)
[2017-06-11] MEDS: Aspirin 81 MG Tab.Chew PO SCH (09:37)
[2017-06-11] MEDS: Pantoprazole 40 MG Tab.CR PO SCH (09:37)
[2017-06-11] MEDS ORDERED: Benzonatate 100 MG Cap PO PRN (10:23)
--- NOTE | 2017-06-11 10:26 | PCM.PN ---
- General Info Date of Service: 06/11/17 Functional Status: Reports: Pain Controlled, Tolerating Diet, Ambulating, Urinating - Review of Systems General: Reports: Malaise, Appetite HEENT: Reports: No Symptoms Pulmonary: Reports: Shortness of Breath Cardiovascular: Reports: No Symptoms Gastrointestinal: Reports: No Symptoms Genitourinary: Reports: No Symptoms Musculoskeletal: Reports: No Symptoms Skin: Reports: No Symptoms Neurological: Reports: No Symptoms Psychiatric: Reports: No Symptoms - Patient Data Vitals - Most Recent: Last Vital Signs Temp 37.5 C 06/11/17 07:38 Pulse 103 H 06/11/17 09:37 Resp 19 06/11/17 07:38 BP 127/74 06/11/17 09:37 Pulse Ox 96 06/11/17 08:45 Weight - Most Recent: 101.423 kg I&O - Last 24 Hours: Intake & Output 06/10/17 06/11/17 06/11/17 22:59 06:59 14:59 Intake Total 1591 Output Total 600 Balance 991 Lab Results Last 24 Hours: Laboratory Results - last 24 hr 06/10/17 06/10/17 06/11/17 Range/Units 21:06 21:10 06:30 WBC 4.71 (3.98-10.04) K/mm3 RBC 4.21 (3.98-5.22) M/mm3 Hgb 11.5 (11.2-15.7) gm/L Hct 36.7 (34.1-44.9) % MCV 87.2 (79.4-94.8) fl MCH 27.3 (25.6-32.2) pg MCHC 31.3 L (32.2-35.5) g/dl RDW Std Deviation 46.3 (36.4-46.3) fL Plt Count 203 (182-369) K/mm3 MPV 10.6 (9.4-12.3) fl Neut % (Auto) 59.5 (34.0-71.1) % Lymph % (Auto) 23.1 (19.3-51.7) % Dawes % (Auto) 15.5 H (4.7-12.5) % Eos % (Auto) 0.2 L (0.7-5.8) Baso % (Auto) 0.4 (0.1-1.2) % Neut # (Auto) 2.80 (1.56-6.13) K/mm3 Lymph # (Auto) 1.09 L (1.18-3.74) K/mm3 Dawes # (Auto) 0.73 H (0.24-0.36) K/mm3 Eos # (Auto) 0.01 L (0.04-0.36) K/mm3 Baso # (Auto) 0.02 (0.01-0.08) K/mm3 Manual Slide Review Normal smear Sodium (136-145) mEq/L Potassium (3.5-5.1) mEq/L Chloride (98-107) mEq/L Carbon Dioxide (21-32) mEq/L Anion Gap (5-15) BUN (7-18) mg/dL Creatinine (0.55-1.02) mg/dL Est Cr Clr Drug Dosing mL/min Estimated GFR (MDRD) (>60) mL/min BUN/Creatinine Ratio (14-18) Glucose (74-106) mg/dL POC Glucose 155 H (70-105) mg/dL Lactic Acid (0.4-2.0) mmol/L Calcium (8.5-10.1) mg/dL Magnesium (1.8-2.4) mg/dl C-Reactive Protein (<1.0) mg/dL MRSA (PCR) Negative 06/11/17 06/11/17 06/11/17 Range/Units 06:30 06:30 07:13 WBC (3.98-10.04) K/mm3 RBC (3.98-5.22) M/mm3 Hgb (11.2-15.7) gm/L Hct (34.1-44.9) % MCV (79.4-94.8) fl MCH (25.6-32.2) pg MCHC (32.2-35.5) g/dl RDW Std Deviation (36.4-46.3) fL Plt Count (182-369) K/mm3 MPV (9.4-12.3) fl Neut % (Auto) (34.0-71.1) % Lymph % (Auto) (19.3-51.7) % Dawes % (Auto) (4.7-12.5) % Eos % (Auto) (0.7-5.8) Baso % (Auto) (0.1-1.2) % Neut # (Auto) (1.56-6.13) K/mm3 Lymph # (Auto) (1.18-3.74) K/mm3 Dawes # (Auto) (0.24-0.36) K/mm3 Eos # (Auto) (0.04-0.36) K/mm3 Baso # (Auto) (0.01-0.08) K/mm3 Manual Slide Review Sodium 142 (136-145) mEq/L Potassium 3.7 (3.5-5.1) mEq/L Chloride 107 (98-107) mEq/L Carbon Dioxide 27 (21-32) mEq/L Anion Gap 11.7 (5-15) BUN 12 (7-18) mg/dL Creatinine 0.6 (0.55-1.02) mg/dL Est Cr Clr Drug Dosing 78.86 mL/min Estimated GFR (MDRD) > 60 (>60) mL/min BUN/Creatinine Ratio 20.0 H (14-18) Glucose 133 H (74-106) mg/dL POC Glucose 133 H (70-105) mg/dL Lactic Acid 1.0 (0.4-2.0) mmol/L Calcium 8.3 L (8.5-10.1) mg/dL Magnesium 1.8 (1.8-2.4) mg/dl C-Reactive Protein 6.4 H* (<1.0) mg/dL MRSA (PCR) Med Orders - Current: Current Medications Acetaminophen (Tylenol) 650 mg PO Q6H PRN PRN Reason: Pain/Fever Last Admin: 06/10/17 21:49 Dose: 650 mg Albuterol (Proventil Neb Soln) 2.5 mg NEB Q4HRRT PRN PRN Reason: Shortness of Breath Last Admin: 06/11/17 03:18 Dose: 2.5 mg Albuterol/Ipratropium (Duoneb 3.0-0.5 Mg/3 Ml) 3 ml NEB QID [facility] Last Admin: 06/11/17 08:43 Dose: 3 ml Aspirin (Aspirin) 81 mg PO DAILY [facility] Last Admin: 06/11/17 09:37 Dose: 81 mg Benzonatate (Tessalon Perles) 200 mg PO BID PRN PRN Reason: Cough Last Admin: 06/10/17 21:48 Dose: 200 mg Benzonatate (Tessalon Perles) 100 mg PO TID PRN PRN Reason: Cough Cholecalciferol (Vitamin D3) 5,000 units PO DAILY [facility] Last Admin: 06/11/17 09:36 Dose: 5,000 units Cyanocobalamin (Vitamin B12) 1,000 mcg PO DAILY [facility] Last Admin: 06/11/17 09:37 Dose: 1,000 mcg Dextrose/Water (Dextrose 50% In Water) 50 ml IVPUSH ASDIRECTED PRN PRN Reason: Hypoglycemia Docusate Sodium (Colace) 100 mg PO BID [facility] Last Admin: 06/11/17 09:36 Dose: 100 mg Enoxaparin Sodium (Lovenox) 40 mg SUBCUT DAILY [facility] Last Admin: 06/11/17 09:35 Dose: 40 mg Fluphenazine HCl (Fluphenazine Hcl) 15 mg PO BEDTIME [facility] Last Admin: 06/11/17 00:03 Dose: Not Given Gentamicin Sulfate (Garamycin 0.3% [facility]) 0 ml EYELF BID [facility] Last Admin: 06/11/17 09:35 Dose: 1 drop Guaifenesin (Mucinex) 600 mg PO BID [facility] Last Admin: 06/11/17 09:37 Dose: 600 mg Sodium Chloride (Normal Saline) 1,000 mls @ 125 mls/hr IV ASDIRECTED [facility] Last Admin: 06/11/17 09:34 Dose: 125 mls/hr Levofloxacin/Dextrose 750 mg/ (Premix) 150 mls @ 100 mls/hr IV Q24H [facility] Last Admin: 06/10/17 21:40 Dose: 100 mls/hr Insulin Aspart (Novolog) 0 unit SUBCUT QIDACANDBED [facility] PRN Reason: Protocol Last Admin: 06/11/17 08:09 Dose: Not Given Metformin HCl (Glucophage) 1,000 mg PO BID [facility] Last Admin: 06/11/17 09:37 Dose: 1,000 mg Metoprolol Succinate (Toprol Xl) 75 mg PO DAILY [facility] Last Admin: 06/11/17 09:37 Dose: 75 mg Mometasone Furoate/Formoterol Fumar (Dulera 200-5 Mcg) 0 puff IH BID [facility] Last Admin: 06/11/17 08:44 Dose: 2 puff Non-Formulary Medication (Liraglutide) 1.2 mg SUBCUT BEDTIME [facility] Olanzapine (Zyprexa) 20 mg PO BID [facility] Last Admin: 06/11/17 09:37 Dose: 20 mg Oxybutynin Chloride (Oxybutynin Er) 10 mg PO BEDTIME [facility] Last Admin: 06/10/17 21:48 Dose: 10 mg Pantoprazole Sodium (Protonix) 40 mg PO DAILY [facility] Last Admin: 06/11/17 09:37 Dose: 40 mg Simvastatin (Zocor) 20 mg PO BEDTIME [facility] Last Admin: 06/11/17 00:00 Dose: 20 mg Sodium Chloride (Saline Flush) 10 ml FLUSH ASDIRECTED PRN PRN Reason: Keep Vein Open Last Admin: 06/10/17 18:28 Dose: 10 ml Trazodone HCl (Trazodone) 300 mg PO DAILY [facility] Last Admin: 06/11/17 09:36 Dose: 300 mg Discontinued Medications Albuterol/Ipratropium (Duoneb 3.0-0.5 Mg/3 Ml) 3 ml NEB ONETIME ONE Stop: 06/10/17 18:05 Last Admin: 06/10/17 18:43 Dose: 3 ml Budesonide/Formoterol Fumarate (Symbicort 160-4.5 Mcg) 0 gm INH BID [facility] Last Admin: 06/10/17 23:36 Dose: Not Given Ceftriaxone Sodium 2 gm/ (Sodium Chloride) 100 mls @ 100 mls/hr IV ONETIME ONE Stop: 06/10/17 19:56 Last Admin: 06/10/17 19:06 Dose: 100 mls/hr - Exam Quality Assessment: Supplemental Oxygen, DVT Prophylaxis General: Alert, Oriented, Cooperative, No Acute Distress HEENT: Pupils Equal, Pupils Reactive, EOMI Neck: Trachea Midline, No JVD Lungs: Normal Respiratory Effort Cardiovascular: Regular Rate, Regular Rhythm GI/Abdominal Exam: Normal Bowel Sounds, Soft, Non-Tender, No Organomegaly, No Distention (Female) Exam: Deferred Back Exam: Normal Inspection Extremities: Normal Inspection Skin: Warm Wound/Incisions: Healing Well, No Drainage Neurological: No New Focal Deficit Psy/Mental Status: Alert, Normal Affect, Normal Mood, Anxious - Problem List Review Problem List Initiated/Reviewed/Updated: Yes - My Orders Last 24 Hours: My Active Orders 06/10/17 20:33 Benzonatate [Tessalon Perles] 200 mg PO BID PRN 06/10/17 20:35 Activity as Tolerated [RC] .Routine Blood Glucose Check, Bedside [RC] QIDACANDBED Dextrose 50% in Water 50 ml IVPUSH ASDIRECTED PRN 06/10/17 20:39 Albuterol [Proventil Neb Soln] 2.5 mg NEB Q4HRRT PRN 06/10/17 20:45 Levofloxacin/Dextrose 5%-Water [Levaquin in D5W 750 MG/150 ML] 750 mg Premix Bag 1 bag IV Q24H 06/10/17 20:50 Acetaminophen [Tylenol] 650 mg PO Q6H PRN 06/10/17 21:00 Albuterol/Ipratropium [DuoNeb 3.0-0.5 MG/3 ML] 3 ml NEB QID Docusate Sodium [Colace] 100 mg PO BID Gentamicin [Garamycin 0.3% Ophth Soln] 0 ml EYELF BID Liraglutide 1.2 mg SUBCUT BEDTIME OLANZapine [ZyPREXA] 20 mg PO BID Oxybutynin [Oxybutynin ER] 10 mg PO BEDTIME fluPHENAZine HCl 15 mg PO BEDTIME guaiFENesin [Mucinex] 600 mg PO BID metFORMIN [Glucophage] 1,000 mg PO BID 06/10/17 22:00 Insulin Aspart [NovoLOG] See Protocol SUBCUT QIDACANDBED Simvastatin [Zocor] 20 mg PO BEDTIME 06/10/17 22:24 Mometasone/Formoterol [Dulera 200-5 MCG] 0 puff IH BID 06/11/17 03:08 Code Status [Resuscitation Status] Routine 06/11/17 09:00 Aspirin 81 mg PO DAILY Cholecalciferol (Vitamin D3) [Vitamin D3] 5,000 units PO DAILY Cyanocobalamin (Vitamin B12) [Vitamin B12] 1,000 mcg PO DAILY Enoxaparin [Lovenox] 40 mg SUBCUT DAILY Metoprolol Succinate [Toprol XL] 75 mg PO DAILY Pantoprazole [ProTONIX] 40 mg PO DAILY traZODone 300 mg PO DAILY 06/11/17 10:23 Benzonatate [Tessalon Perles] 100 mg PO TID PRN 06/11/17 10:25 Isolation [COMM] Routine 06/11/17 13:00 MYCOPLASMA PNEUMONIAE IGM AB [CHEM] Routine STREP PNEUMONIAE ANTIGEN [MREF] Routine 06/11/17 Breakfast ADA Diabetic [[place] [employer] Diet] [DIET] 06/12/17 05:00 BMP [BASIC METABOLIC PANEL,BMP] [CHEM] DAILY CBC WITH AUTO DIFF [HEME] DAILY CRP [C-REACTIVE PROTEIN] [CHEM] DAILY LACTIC ACID [CHEM] DAILY MG [MAGNESIUM] [CHEM] DAILY 06/12/17 08:00 CXR [Chest 2V] [CR] Routine 06/13/17 05:00 BMP [BASIC METABOLIC PANEL,BMP] [CHEM] DAILY CBC WITH AUTO DIFF [HEME] DAILY CRP [C-REACTIVE PROTEIN] [CHEM] DAILY LACTIC ACID [CHEM] DAILY MG [MAGNESIUM] [CHEM] DAILY 06/14/17 05:00 BMP [BASIC METABOLIC PANEL,BMP] [CHEM] DAILY CBC WITH AUTO DIFF [HEME] DAILY CRP [C-REACTIVE PROTEIN] [CHEM] DAILY LACTIC ACID [CHEM] DAILY MG [MAGNESIUM] [CHEM] DAILY - Plan Plan:: Impression: SNF resident with PNA (RML/LLL) associated with hypoxia Failed outpatient treatment with Z pack History of Schizoaffective disorder DM type II HLD Plan: IVF IV ATBs NEBS as needed CXR 2 view Pulmonary Toilet Home meds Daily labs Consult PT/OT/CM DVT/GI prophylaxis
[2017-06-11] MEDS: Benzonatate 100 MG Cap PO PRN (18:21)
[2017-06-11] MEDS: Levofloxacin/Dextrose 5%-Water 750 MG in Premix Bag 1 BAG IV SCH (21:22)
[2017-06-11] MEDS: Oxybutynin 5 MG Tab.ER PO SCH (21:28)
[2017-06-11] MEDS: Simvastatin 20 MG Tab PO SCH ×2 (21:29)
[2017-06-12] MEDS: Albuterol/Ipratropium 3.0-0.5 MG/3 ML Neb Soln NEB SCH ×4 (06:29→20:41)
--- NOTE | 2017-06-12 08:44 | PCM.PN ---
- General Info Date of Service: 06/12/17 Admission Dx/Problem (Free Text): Admission Diagnosis/Problem Admission Diagnosis/Problem Pneumonia Functional Status: Reports: Pain Controlled, Tolerating Diet, Ambulating, Urinating, Incentive Spirometry. Denies: New Symptoms - Review of Systems General: Reports: Malaise. Denies: Fever, Weakness, Chills HEENT: Reports: No Symptoms. Denies: Headaches, Post Nasal Drip, Sore Throat Pulmonary: Reports: Shortness of Breath, Pleuritic Chest Pain, Cough (Sporadic) , Sputum Cardiovascular: Reports: Dyspnea on Exertion. Denies: Chest Pain, Palpitations Gastrointestinal: Denies: Abdominal Pain, Constipation, Diarrhea, Nausea, Vomiting Genitourinary: Reports: No Symptoms Musculoskeletal: Reports: No Symptoms Skin: Reports: No Symptoms Neurological: Reports: No Symptoms Psychiatric: Reports: No Symptoms - Patient Data Vitals - Most Recent: Last Vital Signs Temp 98.6 F 06/12/17 03:28 Pulse 99 06/12/17 03:28 Resp 20 06/12/17 03:28 BP 144/87 H 06/12/17 03:28 Pulse Ox 94 L 06/12/17 06:29 Weight - Most Recent: 222 lb 1.6 oz I&O - Last 24 Hours: Intake & Output 06/11/17 06/12/17 06/12/17 22:59 06:59 14:59 Intake Total 1465 750 Output Total 300 1050 Balance 1165 -300 Lab Results Last 24 Hours: Laboratory Results - last 24 hr 06/11/17 06/11/17 06/11/17 Range/Units 06:30 10:37 16:55 WBC (3.98-10.04) K/mm3 RBC (3.98-5.22) M/mm3 Hgb (11.2-15.7) gm/L Hct (34.1-44.9) % MCV (79.4-94.8) fl MCH (25.6-32.2) pg MCHC (32.2-35.5) g/dl RDW Std Deviation (36.4-46.3) fL Plt Count (182-369) K/mm3 MPV (9.4-12.3) fl Neut % (Auto) (34.0-71.1) % Lymph % (Auto) (19.3-51.7) % [place] % (Auto) (4.7-12.5) % Eos % (Auto) (0.7-5.8) Baso % (Auto) (0.1-1.2) % Neut # (Auto) (1.56-6.13) K/mm3 Lymph # (Auto) (1.18-3.74) K/mm3 [place] # (Auto) (0.24-0.36) K/mm3 Eos # (Auto) (0.04-0.36) K/mm3 Baso # (Auto) (0.01-0.08) K/mm3 Manual Slide Review Sodium (136-145) mEq/L Potassium (3.5-5.1) mEq/L Chloride (98-107) mEq/L Carbon Dioxide (21-32) mEq/L Anion Gap (5-15) BUN (7-18) mg/dL Creatinine (0.55-1.02) mg/dL Est Cr Clr Drug Dosing mL/min Estimated GFR (MDRD) (>60) mL/min BUN/Creatinine Ratio (14-18) Glucose (74-106) mg/dL POC Glucose 185 H 167 H (70-105) mg/dL Lactic Acid (0.4-2.0) mmol/L Calcium (8.5-10.1) mg/dL Magnesium (1.8-2.4) mg/dl C-Reactive Protein (<1.0) mg/dL Mycoplasma pneumon IgM Positive H (NEGATIVE) 06/11/17 06/12/17 06/12/17 Range/Units 20:44 06:02 06:16 WBC 5.52 (3.98-10.04) K/mm3 RBC 4.36 (3.98-5.22) M/mm3 Hgb 12.0 (11.2-15.7) gm/L Hct 37.9 (34.1-44.9) % MCV 86.9 (79.4-94.8) fl MCH 27.5 (25.6-32.2) pg MCHC 31.7 L (32.2-35.5) g/dl RDW Std Deviation 45.1 (36.4-46.3) fL Plt Count 201 (182-369) K/mm3 MPV 10.4 (9.4-12.3) fl Neut % (Auto) 65.6 (34.0-71.1) % Lymph % (Auto) 19.2 L (19.3-51.7) % [place] % (Auto) 12.3 (4.7-12.5) % Eos % (Auto) 0.2 L (0.7-5.8) Baso % (Auto) 0.5 (0.1-1.2) % Neut # (Auto) 3.62 (1.56-6.13) K/mm3 Lymph # (Auto) 1.06 L (1.18-3.74) K/mm3 [place] # (Auto) 0.68 H (0.24-0.36) K/mm3 Eos # (Auto) 0.01 L (0.04-0.36) K/mm3 Baso # (Auto) 0.03 (0.01-0.08) K/mm3 Manual Slide Review Normal smear Sodium (136-145) mEq/L Potassium (3.5-5.1) mEq/L Chloride (98-107) mEq/L Carbon Dioxide (21-32) mEq/L Anion Gap (5-15) BUN (7-18) mg/dL Creatinine (0.55-1.02) mg/dL Est Cr Clr Drug Dosing mL/min Estimated GFR (MDRD) (>60) mL/min BUN/Creatinine Ratio (14-18) Glucose (74-106) mg/dL POC Glucose 190 H 156 H (70-105) mg/dL Lactic Acid (0.4-2.0) mmol/L Calcium (8.5-10.1) mg/dL Magnesium (1.8-2.4) mg/dl C-Reactive Protein (<1.0) mg/dL Mycoplasma pneumon IgM (NEGATIVE) 06/12/17 06/12/17 Range/Units 06:16 06:16 WBC (3.98-10.04) K/mm3 RBC (3.98-5.22) M/mm3 Hgb (11.2-15.7) gm/L Hct (34.1-44.9) % MCV (79.4-94.8) fl MCH (25.6-32.2) pg MCHC (32.2-35.5) g/dl RDW Std Deviation (36.4-46.3) fL Plt Count (182-369) K/mm3 MPV (9.4-12.3) fl Neut % (Auto) (34.0-71.1) % Lymph % (Auto) (19.3-51.7) % [place] % (Auto) (4.7-12.5) % Eos % (Auto) (0.7-5.8) Baso % (Auto) (0.1-1.2) % Neut # (Auto) (1.56-6.13) K/mm3 Lymph # (Auto) (1.18-3.74) K/mm3 [place] # (Auto) (0.24-0.36) K/mm3 Eos # (Auto) (0.04-0.36) K/mm3 Baso # (Auto) (0.01-0.08) K/mm3 Manual Slide Review Sodium 143 (136-145) mEq/L Potassium 4.0 (3.5-5.1) mEq/L Chloride 107 (98-107) mEq/L Carbon Dioxide 26 (21-32) mEq/L Anion Gap 14.0 (5-15) BUN 8 (7-18) mg/dL Creatinine 0.6 (0.55-1.02) mg/dL Est Cr Clr Drug Dosing 78.86 mL/min Estimated GFR (MDRD) > 60 (>60) mL/min BUN/Creatinine Ratio 13.3 L (14-18) Glucose 172 H (74-106) mg/dL POC Glucose (70-105) mg/dL Lactic Acid 1.3 (0.4-2.0) mmol/L Calcium 8.7 (8.5-10.1) mg/dL Magnesium 1.8 (1.8-2.4) mg/dl C-Reactive Protein 3.0 H* (<1.0) mg/dL Mycoplasma pneumon IgM (NEGATIVE) Med Orders - Current: Current Medications Acetaminophen (Tylenol) 650 mg PO Q6H PRN PRN Reason: Pain/Fever Last Admin: 06/10/17 21:49 Dose: 650 mg Albuterol (Proventil Neb Soln) 2.5 mg NEB Q4HRRT PRN PRN Reason: Shortness of Breath Last Admin: 06/11/17 03:18 Dose: 2.5 mg Albuterol/Ipratropium (Duoneb 3.0-0.5 Mg/3 Ml) 3 ml NEB QIDRT [facility] Last Admin: 06/12/17 06:29 Dose: 3 ml Aspirin (Aspirin) 81 mg PO DAILY [facility] Last Admin: 06/11/17 09:37 Dose: 81 mg Benzonatate (Tessalon Perles) 200 mg PO BID PRN PRN Reason: Cough Last Admin: 06/11/17 18:21 Dose: 200 mg Cholecalciferol (Vitamin D3) 5,000 units PO DAILY [facility] Last Admin: 06/11/17 09:36 Dose: 5,000 units Cyanocobalamin (Vitamin B12) 1,000 mcg PO DAILY [facility] Last Admin: 06/11/17 09:37 Dose: 1,000 mcg Dextrose/Water (Dextrose 50% In Water) 50 ml IVPUSH ASDIRECTED PRN PRN Reason: Hypoglycemia Docusate Sodium (Colace) 100 mg PO BID [facility] Last Admin: 06/11/17 21:29 Dose: 100 mg Enoxaparin Sodium (Lovenox) 40 mg SUBCUT DAILY [facility] Last Admin: 06/11/17 09:35 Dose: 40 mg Fluphenazine HCl (Fluphenazine Hcl) 15 mg PO BEDTIME [facility] Last Admin: 06/11/17 21:29 Dose: 15 mg Gentamicin Sulfate (Garamycin 0.3% [facility]) 0 ml EYELF BID [facility] Last Admin: 06/11/17 21:32 Dose: 1 drop Guaifenesin (Mucinex) 600 mg PO BID [facility] Last Admin: 06/11/17 21:30 Dose: 600 mg Levofloxacin/Dextrose 750 mg/ (Premix) 150 mls @ 100 mls/hr IV Q24H [facility] Last Admin: 06/11/17 21:22 Dose: 100 mls/hr Insulin Aspart (Novolog) 0 unit SUBCUT QIDACANDBED [facility] PRN Reason: Protocol Last Admin: 06/11/17 21:30 Dose: 1 unit Metformin HCl (Glucophage) 1,000 mg PO BID [facility] Last Admin: 06/11/17 21:28 Dose: 1,000 mg Metoprolol Succinate (Toprol Xl) 75 mg PO DAILY [facility] Last Admin: 06/11/17 09:37 Dose: 75 mg Mometasone Furoate/Formoterol Fumar (Dulera 200-5 Mcg) 0 puff IH BID [facility] Last Admin: 06/11/17 20:23 Dose: 2 puff Olanzapine (Zyprexa) 20 mg PO BID [facility] Last Admin: 06/11/17 21:30 Dose: 20 mg Oxybutynin Chloride (Oxybutynin Er) 10 mg PO BEDTIME [facility] Last Admin: 06/11/17 21:28 Dose: 10 mg Pantoprazole Sodium (Protonix) 40 mg PO DAILY [facility] Last Admin: 06/11/17 09:37 Dose: 40 mg Saccharomyces Boulardii (Florastor) 250 mg PO DAILY [facility] Simvastatin (Zocor) 20 mg PO BEDTIME [facility] Last Admin: 06/11/17 21:29 Dose: 20 mg Sodium Chloride (Saline Flush) 10 ml FLUSH ASDIRECTED PRN PRN Reason: Keep Vein Open Last Admin: 06/10/17 18:28 Dose: 10 ml Trazodone HCl (Trazodone) 300 mg PO DAILY [facility] Last Admin: 06/11/17 09:36 Dose: 300 mg Discontinued Medications Albuterol/Ipratropium (Duoneb 3.0-0.5 Mg/3 Ml) 3 ml NEB ONETIME ONE Stop: 06/10/17 18:05 Last Admin: 06/10/17 18:43 Dose: 3 ml Albuterol/Ipratropium (Duoneb 3.0-0.5 Mg/3 Ml) 3 ml NEB QID [facility] Last Admin: 06/11/17 20:23 Dose: 3 ml Benzonatate (Tessalon Perles) 100 mg PO TID PRN PRN Reason: Cough Budesonide/Formoterol Fumarate (Symbicort 160-4.5 Mcg) 0 gm INH BID [facility] Last Admin: 06/10/17 23:36 Dose: Not Given Sodium Chloride (Normal Saline) 1,000 mls @ 125 mls/hr IV ASDIRECTED [facility] Last Admin: 06/11/17 09:34 Dose: 125 mls/hr Ceftriaxone Sodium 2 gm/ (Sodium Chloride) 100 mls @ 100 mls/hr IV ONETIME ONE Stop: 06/10/17 19:56 Last Admin: 06/10/17 19:06 Dose: 100 mls/hr Non-Formulary Medication (Liraglutide) 1.2 mg SUBCUT BEDTIME [facility] - Exam Quality Assessment: DVT Prophylaxis General: Alert, Cooperative, No Acute Distress. No: Mild Distress HEENT: Pupils Equal, Pupils Reactive, EOMI, Mucous Membr. Moist/[place], Other ( injected left eye) Neck: Supple, Trachea Midline, No JVD Lungs: Normal Respiratory Effort, Decreased Breath Sounds, Rhonchi (very mild ) , Wheezing (mild ) GI/Abdominal Exam: Normal Bowel Sounds, Soft, Non-Tender, No Organomegaly, No Distention, No Abnormal Bruit, No Mass, Pelvis Stable (Female) Exam: Deferred Back Exam: Normal Inspection Extremities: Normal Inspection, Normal Range of Motion, Non-Tender, No Pedal Edema, Normal Capillary Refill Peripheral Pulses: 1+: Posterior Tibial (L), Posterior Tibial (R), Dorsalis Pedis (L), Dorsalis Pedis (R), 2+: Radial (L), Radial (R) Skin: Warm, Dry, Intact Neurological: No New Focal Deficit Psy/Mental Status: Alert - Problem List & Annotations (1) Pneumonia SNOMED Code(s): 028260210 Code(s): J18.9 - PNEUMONIA, UNSPECIFIED ORGANISM Status: Acute Priority: High Current Visit: Yes Qualifiers: Pneumonia type: due to Mycoplasma pneumoniae Laterality: right Lung location: middle lobe of lung Qualified Code(s): J15.7 - Pneumonia due to Mycoplasma pneumoniae (2) Failure of outpatient treatment SNOMED Code(s): 913708109 Code(s): Z78.9 - OTHER SPECIFIED HEALTH STATUS Status: Acute Priority: High Current Visit: Yes (3) Hypoxia SNOMED Code(s): 370674057 Code(s): R09.02 - HYPOXEMIA Status: Acute Priority: High Current Visit : Yes (4) Schizoaffective disorder SNOMED Code(s): 76139001 Code(s): F25.9 - SCHIZOAFFECTIVE DISORDER, UNSPECIFIED Status: Acute Current Visit: No Onset Date: 03/19/14 - Problem List Review Problem List Initiated/Reviewed/Updated: Yes - Plan Plan:: Impression: SNF resident with PNA (RML/LLL) associated with hypoxia -Failed outpatient treatment with Z pack -Positive mycoplasma pneumonia History of Schizoaffective disorder DM type II HLD Plan: IVF IV ATBs - levaquin--> switch to doxycycline 100mg BID NEBS as needed CXR 2 view- atelectasis, nothing acute Pulmonary Toilet Home meds Daily labs Consult PT/OT/CM RT/IS/Acapella DVT/GI prophylaxis
[2017-06-12] MEDS: Formoterol/Mometasone 200-5 MCG 8.8 GM Inhaler IH SCH ×2 (09:06→20:42)
--- NOTE | 2017-06-12 09:15 | CR ---
Chest: Two views of the chest were obtained. Comparison: Prior chest x-ray of 06/15/12 and 04/05/17. Patchy areas of atelectasis seen within both lung bases. Lungs otherwise are clear. Bony structures are unremarkable for the patient's age. Impression: 1. Bibasilar atelectasis. 2. Nothing acute is otherwise seen on two-view chest x-ray. Diagnostic code #2
--- NOTE | 2017-06-12 09:15 | CR ---
Chest: Portable view of the chest was obtained. Comparison: Prior chest x-ray of 04/05/17. Heart size and mediastinum are normal. Lungs are clear with no acute parenchymal densities. Bony structures are grossly intact. Impression: 1. Nothing acute is identified on portable chest x-ray. Diagnostic code #1
[2017-06-12] MEDS: Saccharomyces Boulardii (Probiotic) 250 MG Cap PO SCH (09:31)
[2017-06-12] MEDS: Docusate Sodium 100 MG Cap PO SCH ×2 (09:32→22:30)
[2017-06-12] MEDS: Cyanocobalamin (Vitamin B12) 1,000 MCG Tab PO SCH (09:32)
[2017-06-12] MEDS: traZODone 50 MG Tab PO SCH (09:33)
[2017-06-12] MEDS: Cholecalciferol (Vitamin D3) 1,000 Unit Tab PO SCH (09:34)
[2017-06-12] MEDS: metFORMIN 500 MG Tab PO SCH ×2 (09:35→22:31)
[2017-06-12] MEDS: guaiFENesin 600 MG Tab.ER PO SCH ×2 (09:36→22:29)
[2017-06-12] MEDS: Aspirin 81 MG Tab.Chew PO SCH (09:36)
[2017-06-12] MEDS: Pantoprazole 40 MG Tab.CR PO SCH (09:36)
[2017-06-12] MEDS: OLANZapine 5 MG Tab PO SCH ×2 (09:38→22:30)
[2017-06-12] MEDS: Metoprolol Succinate 25 MG Tab.ER PO SCH (09:42)
[2017-06-12] MEDS: Enoxaparin 40 MG/0.4 ML Syringe SUBCUT SCH (09:43)
[2017-06-12] MEDS: Insulin Aspart 100 Units/ML 3 ML Pen SUBCUT SCH ×4 (09:44→22:43)
[2017-06-12] MEDS: Gentamicin 0.3% Ophth Soln 15 ML Bottle EYELF SCH ×2 (09:47→22:28)
[2017-06-12] MEDS ORDERED: Levofloxacin 750 MG Tab PO SCH (20:30)
[2017-06-12] MEDS: Simvastatin 20 MG Tab PO SCH (22:31)
[2017-06-12] MEDS: Oxybutynin 5 MG Tab.ER PO SCH (22:31)
[2017-06-12] MEDS: Doxycycline 100 MG in Sodium Chloride 0.9% 100 ML IV SCH (22:46)
[2017-06-13] MEDS: Albuterol/Ipratropium 3.0-0.5 MG/3 ML Neb Soln NEB SCH ×4 (05:34→20:53)
--- NOTE | 2017-06-13 06:40 | PCM.PN ---
- General Info Date of Service: 06/13/17 Admission Dx/Problem (Free Text): Admission Diagnosis/Problem Admission Diagnosis/Problem Pneumonia - Patient Data Vitals - Most Recent: Last Vital Signs Temp 98.8 F 06/13/17 02:15 Pulse 92 06/13/17 02:16 Resp 22 H 06/13/17 02:15 BP 144/68 H 06/13/17 02:15 Pulse Ox 91 L 06/13/17 02:16 Weight - Most Recent: 222 lb 1.6 oz I&O - Last 24 Hours: Intake & Output 06/12/17 06/12/17 06/13/17 14:59 22:59 06:59 Intake Total 240 1040 100 Output Total 1200 Balance 240 -160 100 Lab Results Last 24 Hours: Laboratory Results - last 24 hr 06/12/17 06/12/17 06/12/17 Range/Units 06:16 06:16 06:16 WBC 5.52 (3.98-10.04) K/mm3 RBC 4.36 (3.98-5.22) M/mm3 Hgb 12.0 (11.2-15.7) gm/L Hct 37.9 (34.1-44.9) % MCV 86.9 (79.4-94.8) fl MCH 27.5 (25.6-32.2) pg MCHC 31.7 L (32.2-35.5) g/dl RDW Std Deviation 45.1 (36.4-46.3) fL Plt Count 201 (182-369) K/mm3 MPV 10.4 (9.4-12.3) fl Neut % (Auto) 65.6 (34.0-71.1) % Lymph % (Auto) 19.2 L (19.3-51.7) % [place] % (Auto) 12.3 (4.7-12.5) % Eos % (Auto) 0.2 L (0.7-5.8) Baso % (Auto) 0.5 (0.1-1.2) % Neut # (Auto) 3.62 (1.56-6.13) K/mm3 Lymph # (Auto) 1.06 L (1.18-3.74) K/mm3 [place] # (Auto) 0.68 H (0.24-0.36) K/mm3 Eos # (Auto) 0.01 L (0.04-0.36) K/mm3 Baso # (Auto) 0.03 (0.01-0.08) K/mm3 Manual Slide Review Normal smear Sodium 143 (136-145) mEq/L Potassium 4.0 (3.5-5.1) mEq/L Chloride 107 (98-107) mEq/L Carbon Dioxide 26 (21-32) mEq/L Anion Gap 14.0 (5-15) BUN 8 (7-18) mg/dL Creatinine 0.6 (0.55-1.02) mg/dL Est Cr Clr Drug Dosing 78.86 mL/min Estimated GFR (MDRD) > 60 (>60) mL/min BUN/Creatinine Ratio 13.3 L (14-18) Glucose 172 H (74-106) mg/dL POC Glucose (70-105) mg/dL Lactic Acid 1.3 (0.4-2.0) mmol/L Calcium 8.7 (8.5-10.1) mg/dL Magnesium 1.8 (1.8-2.4) mg/dl C-Reactive Protein 3.0 H* (<1.0) mg/dL 06/12/17 06/12/17 06/12/17 Range/Units 10:48 17:03 22:42 WBC (3.98-10.04) K/mm3 RBC (3.98-5.22) M/mm3 Hgb (11.2-15.7) gm/L Hct (34.1-44.9) % MCV (79.4-94.8) fl MCH (25.6-32.2) pg MCHC (32.2-35.5) g/dl RDW Std Deviation (36.4-46.3) fL Plt Count (182-369) K/mm3 MPV (9.4-12.3) fl Neut % (Auto) (34.0-71.1) % Lymph % (Auto) (19.3-51.7) % [place] % (Auto) (4.7-12.5) % Eos % (Auto) (0.7-5.8) Baso % (Auto) (0.1-1.2) % Neut # (Auto) (1.56-6.13) K/mm3 Lymph # (Auto) (1.18-3.74) K/mm3 [place] # (Auto) (0.24-0.36) K/mm3 Eos # (Auto) (0.04-0.36) K/mm3 Baso # (Auto) (0.01-0.08) K/mm3 Manual Slide Review Sodium (136-145) mEq/L Potassium (3.5-5.1) mEq/L Chloride (98-107) mEq/L Carbon Dioxide (21-32) mEq/L Anion Gap (5-15) BUN (7-18) mg/dL Creatinine (0.55-1.02) mg/dL Est Cr Clr Drug Dosing mL/min Estimated GFR (MDRD) (>60) mL/min BUN/Creatinine Ratio (14-18) Glucose (74-106) mg/dL POC Glucose 147 H 149 H 194 H (70-105) mg/dL Lactic Acid (0.4-2.0) mmol/L Calcium (8.5-10.1) mg/dL Magnesium (1.8-2.4) mg/dl C-Reactive Protein (<1.0) mg/dL Med Orders - Current: Current Medications Acetaminophen (Tylenol) 650 mg PO Q6H PRN PRN Reason: Pain/Fever Last Admin: 06/10/17 21:49 Dose: 650 mg Albuterol (Proventil Neb Soln) 2.5 mg NEB Q4HRRT PRN PRN Reason: Shortness of Breath Last Admin: 06/11/17 03:18 Dose: 2.5 mg Albuterol/Ipratropium (Duoneb 3.0-0.5 Mg/3 Ml) 3 ml NEB QIDRT [facility] Last Admin: 06/13/17 05:34 Dose: 3 ml Aspirin (Aspirin) 81 mg PO DAILY [facility] Last Admin: 06/12/17 09:36 Dose: 81 mg Benzonatate (Tessalon Perles) 200 mg PO BID PRN PRN Reason: Cough Last Admin: 06/11/17 18:21 Dose: 200 mg Cholecalciferol (Vitamin D3) 5,000 units PO DAILY [facility] Last Admin: 06/12/17 09:34 Dose: 5,000 units Cyanocobalamin (Vitamin B12) 1,000 mcg PO DAILY [facility] Last Admin: 06/12/17 09:32 Dose: 1,000 mcg Dextrose/Water (Dextrose 50% In Water) 50 ml IVPUSH ASDIRECTED PRN PRN Reason: Hypoglycemia Docusate Sodium (Colace) 100 mg PO BID [facility] Last Admin: 06/12/17 22:30 Dose: 100 mg Enoxaparin Sodium (Lovenox) 40 mg SUBCUT DAILY [facility] Last Admin: 06/12/17 09:43 Dose: 40 mg Fluphenazine HCl (Fluphenazine Hcl) 15 mg PO BEDTIME [facility] Last Admin: 06/12/17 22:29 Dose: 15 mg Gentamicin Sulfate (Garamycin 0.3% [facility]) 0 ml EYELF BID [facility] Last Admin: 06/12/17 22:28 Dose: 1 drop Guaifenesin (Mucinex) 600 mg PO BID [facility] Last Admin: 06/12/17 22:29 Dose: 600 mg Doxycycline Hyclate 100 mg/ (Sodium Chloride) 100 mls @ 100 mls/hr IV Q12HR [facility] Last Admin: 06/12/17 22:46 Dose: 100 mls/hr Insulin Aspart (Novolog) 0 unit SUBCUT QIDACANDBED [facility] PRN Reason: Protocol Last Admin: 06/12/17 22:43 Dose: 1 unit Metformin HCl (Glucophage) 1,000 mg PO BID [facility] Last Admin: 06/12/17 22:31 Dose: 1,000 mg Metoprolol Succinate (Toprol Xl) 75 mg PO DAILY [facility] Last Admin: 06/12/17 09:42 Dose: 75 mg Mometasone Furoate/Formoterol Fumar (Dulera 200-5 Mcg) 0 puff IH BID [facility] Last Admin: 06/12/17 20:42 Dose: 2 puff Olanzapine (Zyprexa) 20 mg PO BID [facility] Last Admin: 06/12/17 22:30 Dose: 20 mg Oxybutynin Chloride (Oxybutynin Er) 10 mg PO BEDTIME [facility] Last Admin: 06/12/17 22:31 Dose: 10 mg Pantoprazole Sodium (Protonix) 40 mg PO DAILY [facility] Last Admin: 06/12/17 09:36 Dose: 40 mg Saccharomyces Boulardii (Florastor) 250 mg PO DAILY [facility] Last Admin: 06/12/17 09:31 Dose: 250 mg Simvastatin (Zocor) 20 mg PO BEDTIME [facility] Last Admin: 06/12/17 22:31 Dose: 20 mg Sodium Chloride (Saline Flush) 10 ml FLUSH ASDIRECTED PRN PRN Reason: Keep Vein Open Last Admin: 06/10/17 18:28 Dose: 10 ml Trazodone HCl (Trazodone) 300 mg PO DAILY [facility] Last Admin: 06/12/17 09:33 Dose: 300 mg Discontinued Medications Albuterol/Ipratropium (Duoneb 3.0-0.5 Mg/3 Ml) 3 ml NEB ONETIME ONE Stop: 06/10/17 18:05 Last Admin: 06/10/17 18:43 Dose: 3 ml Albuterol/Ipratropium (Duoneb 3.0-0.5 Mg/3 Ml) 3 ml NEB QID [facility] Last Admin: 06/11/17 20:23 Dose: 3 ml Benzonatate (Tessalon Perles) 100 mg PO TID PRN PRN Reason: Cough Budesonide/Formoterol Fumarate (Symbicort 160-4.5 Mcg) 0 gm INH BID [facility] Last Admin: 06/10/17 23:36 Dose: Not Given Sodium Chloride (Normal Saline) 1,000 mls @ 125 mls/hr IV ASDIRECTED [facility] Last Admin: 06/11/17 09:34 Dose: 125 mls/hr Ceftriaxone Sodium 2 gm/ (Sodium Chloride) 100 mls @ 100 mls/hr IV ONETIME ONE Stop: 06/10/17 19:56 Last Admin: 06/10/17 19:06 Dose: 100 mls/hr Levofloxacin/Dextrose 750 mg/ (Premix) 150 mls @ 100 mls/hr IV Q24H [facility] Stop: 06/13/17 04:00 Last Admin: 06/11/17 21:22 Dose: 100 mls/hr Levofloxacin (Levaquin) 750 mg PO Q24H [facility] Non-Formulary Medication (Liraglutide) 1.2 mg SUBCUT BEDTIME [facility] - Problem List & Annotations (1) Pneumonia SNOMED Code(s): 234638510 Code(s): J18.9 - PNEUMONIA, UNSPECIFIED ORGANISM Status: Acute Priority: High Current Visit: Yes Qualifiers: Pneumonia type: due to Mycoplasma pneumoniae Laterality: right Lung location: middle lobe of lung Qualified Code(s): J15.7 - Pneumonia due to Mycoplasma pneumoniae (2) Failure of outpatient treatment SNOMED Code(s): 502005859 Code(s): Z78.9 - OTHER SPECIFIED HEALTH STATUS Status: Acute Priority: High Current Visit: Yes (3) Hypoxia SNOMED Code(s): 943686280 Code(s): R09.02 - HYPOXEMIA Status: Acute Priority: High Current Visit : Yes (4) Schizoaffective disorder SNOMED Code(s): 84059042 Code(s): F25.9 - SCHIZOAFFECTIVE DISORDER, UNSPECIFIED Status: Acute Current Visit: No Onset Date: 03/19/14 - My Orders Last 24 Hours: My Active Orders 06/12/17 10:35 RT Incentive Spirometry [RC] ASDIRECTED 06/12/17 16:33 Acapella [RT Chest Physiotherapy] [RC] ASDIRECTED 06/12/17 21:00 Doxycycline [Vibramycin] 100 mg Sodium Chloride 0.9% [Normal Saline] 100 ml IV Q12HR - Plan Plan:: Impression: SNF resident with PNA (RML/LLL) associated with hypoxia -Failed outpatient treatment with Z pack -Positive mycoplasma pneumonia History of Schizoaffective disorder DM type II HLD Plan: IVF IV ATBs - levaquin--> switch to doxycycline 100mg BID NEBS as needed CXR 2 view- atelectasis, nothing acute Pulmonary Toilet Home meds Daily labs Consult PT/OT/CM RT/IS/Acapella DVT/GI prophylaxis
[2017-06-13] MEDS: Gentamicin 0.3% Ophth Soln 15 ML Bottle EYELF SCH ×2 (08:40→21:04)
[2017-06-13] MEDS: Saccharomyces Boulardii (Probiotic) 250 MG Cap PO SCH (08:40)
[2017-06-13] MEDS: Cholecalciferol (Vitamin D3) 1,000 Unit Tab PO SCH (08:40)
[2017-06-13] MEDS: Aspirin 81 MG Tab.Chew PO SCH (08:40)
[2017-06-13] MEDS: Docusate Sodium 100 MG Cap PO SCH ×2 (08:40→21:06)
[2017-06-13] MEDS: Enoxaparin 40 MG/0.4 ML Syringe SUBCUT SCH (08:41)
[2017-06-13] MEDS: OLANZapine 5 MG Tab PO SCH ×2 (08:41→21:05)
[2017-06-13] MEDS: Cyanocobalamin (Vitamin B12) 1,000 MCG Tab PO SCH (08:41)
[2017-06-13] MEDS: guaiFENesin 600 MG Tab.ER PO SCH ×2 (08:42→21:07)
[2017-06-13] MEDS: Pantoprazole 40 MG Tab.CR PO SCH (08:42)
[2017-06-13] MEDS: traZODone 50 MG Tab PO SCH (08:42)
[2017-06-13] MEDS: metFORMIN 500 MG Tab PO SCH ×2 (08:43→21:05)
[2017-06-13] MEDS: Insulin Aspart 100 Units/ML 3 ML Pen SUBCUT SCH ×4 (08:43→21:07)
[2017-06-13] MEDS: Doxycycline 100 MG in Sodium Chloride 0.9% 100 ML IV SCH (08:44)
[2017-06-13] MEDS: Metoprolol Succinate 25 MG Tab.ER PO SCH (08:44)
[2017-06-13] MEDS: Formoterol/Mometasone 200-5 MCG 8.8 GM Inhaler IH SCH ×2 (09:09→20:53)
[2017-06-13] MEDS: Benzonatate 100 MG Cap PO PRN ×2 (11:41→21:09)
--- NOTE | 2017-06-13 14:34 | PCM.PN ---
- General Info Date of Service: 06/13/17 Subjective Update: In to see Amara. Friend is in the room and notes her improvement on coughing as she has been much less frequent than in the past. She has no complaints. Reports she slept good. She is doing quite well. She did receive 2 doses of IV doxycycline. She will be switched to by mouth tonight. Likely discharge tomorrow morning. Functional Status: Reports: Pain Controlled, Tolerating Diet, Ambulating, Urinating, Incentive Spirometry. Denies: New Symptoms - Review of Systems General: Reports: Weakness (improving) HEENT: Reports: No Symptoms Pulmonary: Reports: Shortness of Breath (greatly improved ), Cough (improved ). Denies: Sputum, Wheezing Cardiovascular: Reports: Dyspnea on Exertion. Denies: Edema Gastrointestinal: Reports: No Symptoms Genitourinary: Reports: No Symptoms Musculoskeletal: Reports: No Symptoms Skin: Reports: No Symptoms Neurological: Reports: No Symptoms Psychiatric: Reports: No Symptoms - Patient Data Vitals - Most Recent: Last Vital Signs Temp 98.8 F 06/13/17 07:54 Pulse 85 06/13/17 08:44 Resp 22 H 06/13/17 07:54 BP 145/73 H 06/13/17 08:44 Pulse Ox 92 L 06/13/17 09:09 Weight - Most Recent: 218 lb 9.6 oz I&O - Last 24 Hours: Intake & Output 06/12/17 06/13/17 06/13/17 22:59 06:59 14:59 Intake Total 1040 400 240 Output Total 1200 300 Balance -160 100 240 Lab Results Last 24 Hours: Laboratory Results - last 24 hr 06/12/17 06/12/17 06/13/17 Range/Units 17:03 22:42 06:24 WBC 6.58 (3.98-10.04) K/mm3 RBC 4.43 (3.98-5.22) M/mm3 Hgb 12.1 (11.2-15.7) gm/L Hct 38.8 (34.1-44.9) % MCV 87.6 (79.4-94.8) fl MCH 27.3 (25.6-32.2) pg MCHC 31.2 L (32.2-35.5) g/dl RDW Std Deviation 46.8 H (36.4-46.3) fL Plt Count 202 (182-369) K/mm3 MPV 10.5 (9.4-12.3) fl Neut % (Auto) 64.9 (34.0-71.1) % Lymph % (Auto) 18.8 L (19.3-51.7) % [place] % (Auto) 11.4 (4.7-12.5) % Eos % (Auto) 0.2 L (0.7-5.8) Baso % (Auto) 0.3 (0.1-1.2) % Neut # (Auto) 4.27 (1.56-6.13) K/mm3 Lymph # (Auto) 1.24 (1.18-3.74) K/mm3 [place] # (Auto) 0.75 H (0.24-0.36) K/mm3 Eos # (Auto) 0.01 L (0.04-0.36) K/mm3 Baso # (Auto) 0.02 (0.01-0.08) K/mm3 Manual Slide Review Abnormal smear Sodium (136-145) mEq/L Potassium (3.5-5.1) mEq/L Chloride (98-107) mEq/L Carbon Dioxide (21-32) mEq/L Anion Gap (5-15) BUN (7-18) mg/dL Creatinine (0.55-1.02) mg/dL Est Cr Clr Drug Dosing mL/min Estimated GFR (MDRD) (>60) mL/min BUN/Creatinine Ratio (14-18) Glucose (74-106) mg/dL POC Glucose 149 H 194 H (70-105) mg/dL Lactic Acid (0.4-2.0) mmol/L Calcium (8.5-10.1) mg/dL Magnesium (1.8-2.4) mg/dl C-Reactive Protein (<1.0) mg/dL 06/13/17 06/13/17 06/13/17 Range/Units 06:24 06:24 07:18 WBC (3.98-10.04) K/mm3 RBC (3.98-5.22) M/mm3 Hgb (11.2-15.7) gm/L Hct (34.1-44.9) % MCV (79.4-94.8) fl MCH (25.6-32.2) pg MCHC (32.2-35.5) g/dl RDW Std Deviation (36.4-46.3) fL Plt Count (182-369) K/mm3 MPV (9.4-12.3) fl Neut % (Auto) (34.0-71.1) % Lymph % (Auto) (19.3-51.7) % [place] % (Auto) (4.7-12.5) % Eos % (Auto) (0.7-5.8) Baso % (Auto) (0.1-1.2) % Neut # (Auto) (1.56-6.13) K/mm3 Lymph # (Auto) (1.18-3.74) K/mm3 [place] # (Auto) (0.24-0.36) K/mm3 Eos # (Auto) (0.04-0.36) K/mm3 Baso # (Auto) (0.01-0.08) K/mm3 Manual Slide Review Sodium 142 (136-145) mEq/L Potassium 4.1 (3.5-5.1) mEq/L Chloride 105 (98-107) mEq/L Carbon Dioxide 25 (21-32) mEq/L Anion Gap 16.1 H (5-15) BUN 13 (7-18) mg/dL Creatinine 0.7 (0.55-1.02) mg/dL Est Cr Clr Drug Dosing 67.59 mL/min Estimated GFR (MDRD) > 60 (>60) mL/min BUN/Creatinine Ratio 18.6 H (14-18) Glucose 170 H (74-106) mg/dL POC Glucose 161 H (70-105) mg/dL Lactic Acid 1.5 (0.4-2.0) mmol/L Calcium 8.8 (8.5-10.1) mg/dL Magnesium 1.9 (1.8-2.4) mg/dl C-Reactive Protein 0.6 (<1.0) mg/dL 06/13/17 Range/Units 10:49 WBC (3.98-10.04) K/mm3 RBC (3.98-5.22) M/mm3 Hgb (11.2-15.7) gm/L Hct (34.1-44.9) % MCV (79.4-94.8) fl MCH (25.6-32.2) pg MCHC (32.2-35.5) g/dl RDW Std Deviation (36.4-46.3) fL Plt Count (182-369) K/mm3 MPV (9.4-12.3) fl Neut % (Auto) (34.0-71.1) % Lymph % (Auto) (19.3-51.7) % [place] % (Auto) (4.7-12.5) % Eos % (Auto) (0.7-5.8) Baso % (Auto) (0.1-1.2) % Neut # (Auto) (1.56-6.13) K/mm3 Lymph # (Auto) (1.18-3.74) K/mm3 [place] # (Auto) (0.24-0.36) K/mm3 Eos # (Auto) (0.04-0.36) K/mm3 Baso # (Auto) (0.01-0.08) K/mm3 Manual Slide Review Sodium (136-145) mEq/L Potassium (3.5-5.1) mEq/L Chloride (98-107) mEq/L Carbon Dioxide (21-32) mEq/L Anion Gap (5-15) BUN (7-18) mg/dL Creatinine (0.55-1.02) mg/dL Est Cr Clr Drug Dosing mL/min Estimated GFR (MDRD) (>60) mL/min BUN/Creatinine Ratio (14-18) Glucose (74-106) mg/dL POC Glucose 149 H (70-105) mg/dL Lactic Acid (0.4-2.0) mmol/L Calcium (8.5-10.1) mg/dL Magnesium (1.8-2.4) mg/dl C-Reactive Protein (<1.0) mg/dL Med Orders - Current: Current Medications Acetaminophen (Tylenol) 650 mg PO Q6H PRN PRN Reason: Pain/Fever Last Admin: 06/10/17 21:49 Dose: 650 mg Albuterol (Proventil Neb Soln) 2.5 mg NEB Q4HRRT PRN PRN Reason: Shortness of Breath Last Admin: 06/11/17 03:18 Dose: 2.5 mg Albuterol/Ipratropium (Duoneb 3.0-0.5 Mg/3 Ml) 3 ml NEB QIDRT [facility] Last Admin: 06/13/17 09:08 Dose: 3 ml Aspirin (Aspirin) 81 mg PO DAILY [facility] Last Admin: 06/13/17 08:40 Dose: 81 mg Benzonatate (Tessalon Perles) 200 mg PO BID PRN PRN Reason: Cough Last Admin: 06/13/17 11:41 Dose: 200 mg Cholecalciferol (Vitamin D3) 5,000 units PO DAILY [facility] Last Admin: 06/13/17 08:40 Dose: 5,000 units Cyanocobalamin (Vitamin B12) 1,000 mcg PO DAILY [facility] Last Admin: 06/13/17 08:41 Dose: 1,000 mcg Dextrose/Water (Dextrose 50% In Water) 50 ml IVPUSH ASDIRECTED PRN PRN Reason: Hypoglycemia Docusate Sodium (Colace) 100 mg PO BID [facility] Last Admin: 06/13/17 08:40 Dose: 100 mg Doxycycline Hyclate (Vibramycin) 100 mg PO BID [facility] Enoxaparin Sodium (Lovenox) 40 mg SUBCUT DAILY [facility] Last Admin: 06/13/17 08:41 Dose: 40 mg Fluphenazine HCl (Fluphenazine Hcl) 15 mg PO BEDTIME [facility] Last Admin: 06/12/17 22:29 Dose: 15 mg Gentamicin Sulfate (Garamycin 0.3% [facility]) 0 ml EYELF BID [facility] Last Admin: 06/13/17 08:40 Dose: 1 drop Guaifenesin (Mucinex) 600 mg PO BID [facility] Last Admin: 06/13/17 08:42 Dose: 600 mg Insulin Aspart (Novolog) 0 unit SUBCUT QIDACANDBED [facility] PRN Reason: Protocol Last Admin: 06/13/17 11:13 Dose: Not Given Metformin HCl (Glucophage) 1,000 mg PO BID [facility] Last Admin: 06/13/17 08:43 Dose: 1,000 mg Metoprolol Succinate (Toprol Xl) 75 mg PO DAILY [facility] Last Admin: 06/13/17 08:44 Dose: 75 mg Mometasone Furoate/Formoterol Fumar (Dulera 200-5 Mcg) 0 puff IH BID [facility] Last Admin: 06/13/17 09:09 Dose: 2 puff Olanzapine (Zyprexa) 20 mg PO BID [facility] Last Admin: 06/13/17 08:41 Dose: 20 mg Oxybutynin Chloride (Oxybutynin Er) 10 mg PO BEDTIME [facility] Last Admin: 06/12/17 22:31 Dose: 10 mg Pantoprazole Sodium (Protonix) 40 mg PO DAILY [facility] Last Admin: 06/13/17 08:42 Dose: 40 mg Saccharomyces Boulardii (Florastor) 250 mg PO DAILY [facility] Last Admin: 06/13/17 08:40 Dose: 250 mg Simvastatin (Zocor) 20 mg PO BEDTIME [facility] Last Admin: 06/12/17 22:31 Dose: 20 mg Sodium Chloride (Saline Flush) 10 ml FLUSH ASDIRECTED PRN PRN Reason: Keep Vein Open Last Admin: 06/10/17 18:28 Dose: 10 ml Trazodone HCl (Trazodone) 300 mg PO DAILY [facility] Last Admin: 06/13/17 08:42 Dose: 300 mg Discontinued Medications Albuterol/Ipratropium (Duoneb 3.0-0.5 Mg/3 Ml) 3 ml NEB ONETIME ONE Stop: 06/10/17 18:05 Last Admin: 06/10/17 18:43 Dose: 3 ml Albuterol/Ipratropium (Duoneb 3.0-0.5 Mg/3 Ml) 3 ml NEB QID [facility] Last Admin: 06/11/17 20:23 Dose: 3 ml Benzonatate (Tessalon Perles) 100 mg PO TID PRN PRN Reason: Cough Budesonide/Formoterol Fumarate (Symbicort 160-4.5 Mcg) 0 gm INH BID [facility] Last Admin: 06/10/17 23:36 Dose: Not Given Sodium Chloride (Normal Saline) 1,000 mls @ 125 mls/hr IV ASDIRECTED [facility] Last Admin: 06/11/17 09:34 Dose: 125 mls/hr Ceftriaxone Sodium 2 gm/ (Sodium Chloride) 100 mls @ 100 mls/hr IV ONETIME ONE Stop: 06/10/17 19:56 Last Admin: 06/10/17 19:06 Dose: 100 mls/hr Levofloxacin/Dextrose 750 mg/ (Premix) 150 mls @ 100 mls/hr IV Q24H [facility] Stop: 06/13/17 04:00 Last Admin: 06/11/17 21:22 Dose: 100 mls/hr Doxycycline Hyclate 100 mg/ (Sodium Chloride) 100 mls @ 100 mls/hr IV Q12HR [facility] Last Admin: 06/13/17 08:44 Dose: 100 mls/hr Levofloxacin (Levaquin) 750 mg PO Q24H [facility] Non-Formulary Medication (Liraglutide) 1.2 mg SUBCUT BEDTIME [facility] - Exam Quality Assessment: DVT Prophylaxis General: Alert, Oriented, Cooperative, No Acute Distress HEENT: Pupils Equal, Pupils Reactive, EOMI, Mucous Membr. Moist/[place] Neck: Supple Lungs: Normal Respiratory Effort, Decreased Breath Sounds, Wheezing (mild) Cardiovascular: Regular Rate, Regular Rhythm GI/Abdominal Exam: Normal Bowel Sounds, Soft, Non-Tender, No Organomegaly, No Distention, No Abnormal Bruit, No Mass, Pelvis Stable (Female) Exam: Deferred Back Exam: Normal Inspection Extremities: Normal Inspection, Normal Range of Motion, Non-Tender, No Pedal Edema, Normal Capillary Refill Peripheral Pulses: 1+: Posterior Tibial (L), Posterior Tibial (R), Dorsalis Pedis (L), Dorsalis Pedis (R), 2+: Radial (L), Radial (R) Skin: Warm, Dry, Intact Neurological: No New Focal Deficit Psy/Mental Status: Alert - Problem List & Annotations (1) Pneumonia SNOMED Code(s): 632914185 Code(s): J18.9 - PNEUMONIA, UNSPECIFIED ORGANISM Status: Acute Priority: High Current Visit: Yes Qualifiers: Pneumonia type: due to Mycoplasma pneumoniae Laterality: right Lung location: middle lobe of lung Qualified Code(s): J15.7 - Pneumonia due to Mycoplasma pneumoniae (2) Failure of outpatient treatment SNOMED Code(s): 096293328 Code(s): Z78.9 - OTHER SPECIFIED HEALTH STATUS Status: Acute Priority: High Current Visit: Yes (3) Hypoxia SNOMED Code(s): 143674857 Code(s): R09.02 - HYPOXEMIA Status: Acute Priority: High Current Visit : Yes (4) Schizoaffective disorder SNOMED Code(s): 19973479 Code(s): F25.9 - SCHIZOAFFECTIVE DISORDER, UNSPECIFIED Status: Acute Current Visit: No Onset Date: 03/19/14 - Problem List Review Problem List Initiated/Reviewed/Updated: Yes - My Orders Last 24 Hours: My Active Orders 06/12/17 16:33 Acapella [RT Chest Physiotherapy] [RC] ASDIRECTED - Plan Plan:: Impression: SNF resident with PNA (RML/LLL) associated with hypoxia -Failed outpatient treatment with Z pack -Positive mycoplasma pneumonia History of Schizoaffective disorder DM type II HLD Plan: IVF IV ATBs - levaquin--> switch to doxycycline 100mg BID --> start PO doxycycline tonight NEBS as needed CXR 2 view- atelectasis, nothing acute Pulmonary Toilet Home meds Daily labs Consult PT/OT/CM RT/IS/Acapella DVT/GI prophylaxis Likely discharge 06/14/17
[2017-06-13] MEDS: Oxybutynin 5 MG Tab.ER PO SCH (21:06)
[2017-06-13] MEDS: Simvastatin 20 MG Tab PO SCH (21:06)
[2017-06-13] MEDS: Doxycycline 100 MG Cap PO SCH (21:08)
[2017-06-14] MEDS: Albuterol/Ipratropium 3.0-0.5 MG/3 ML Neb Soln NEB SCH ×3 (05:47→09:15)
[2017-06-14] MEDS ORDERED: Codeine/guaiFENesin 100-10 MG/5 ML Syrup 5 ML Cup PO PRN (07:16)
[2017-06-14] MEDS ORDERED: Budesonide 0.5 MG/2 ML Neb Susp NEB SCH (07:30)
--- NOTE | 2017-06-14 07:31 | PCM.DCSUM1 ---
Discharge Summary - Hospital Course Free Text/Narrative:: 62 [place] [facility] with cough, fever and chills. She complains of a cough with sputum; there has been no improvement after a Z pack taken as outpatient. There is a questionable RML infiltrate on ED X-ray. The pulse oximetry documented an O2 saturation of 88%. She will be admitted to [facility] for failed OP therapy, pneumonia and hypoxia. She is DNR code status. Dr. Hand is PCP - Discharge Data Discharge Date: 06/14/17 Discharge Disposition: DC/Tfer to [facility] 03 Condition: Good - Discharge Diagnosis/Problem(s) (1) Pneumonia SNOMED Code(s): 623176813 ICD Code: J18.9 - PNEUMONIA, UNSPECIFIED ORGANISM Status: Acute Priority : High Current Visit: Yes Qualifiers: Pneumonia type: due to Mycoplasma pneumoniae Laterality: right Lung location: middle lobe of lung Qualified Code(s): J15.7 - Pneumonia due to Mycoplasma pneumoniae (2) Bronchitis SNOMED Code(s): 25869529 ICD Code: J40 - BRONCHITIS, NOT SPECIFIED ACUTE OR CHRONIC Status: Acute Priority: High Current Visit: Yes (3) Elevated LFTs SNOMED Code(s): 264615987 ICD Code: R79.89 - OTHER SPECIFIED ABNORMAL FINDINGS OF BLOOD CHEMISTRY Status: Acute Priority: High Current Visit: Yes (4) Hypoxia SNOMED Code(s): 638723553 ICD Code: R09.02 - HYPOXEMIA Status: Resolved Priority: High Current Visit: Yes (5) Failure of outpatient treatment SNOMED Code(s): 323587518 ICD Code: Z78.9 - OTHER SPECIFIED HEALTH STATUS Status: Acute Priority: High Current Visit: Yes (6) Schizoaffective disorder SNOMED Code(s): 51294170 ICD Code: F25.9 - SCHIZOAFFECTIVE DISORDER, UNSPECIFIED Status: Chronic Priority: Medium Current Visit: No Onset Date: 03/19/14 - Patient Summary/Data Operative Procedure(s) Performed: None Complications: None Consults: None Labs Pending at D/C: None Recommended Follow-up Testing/Procedures: Follow up with PCP, Dr. Hand within one week of discharge. Your liver enzymes/tests were slightly elevated on admission--- likely from infection, but recommend to follow these with PCP. Push fluids Incentive spirometry and cough and deep breath every 2 hours while awake Planned Operative Procedure(s) after DC: None Hospital Course: Impression/Plan: SNF resident with PNA (RML/LLL) associated with hypoxia -Failed outpatient treatment with Z pack -Positive mycoplasma pneumonia -IV doxy--> changed to PO yesterday, doing well with good response. -Florastor -RT/IS/Nebs--off of supplemental oxygen History of Schizoaffective disorder -Moods stable and not of concern -cont home meds DM type II -Accuchecks, SSI and cont home meds -A1C today HLD- cont home med Elevated LFT's- mild -Suspect d/t infection, will recheck today, prior to discharge--recommend f/ up with PCP for recheck Other: IV ATBs - levaquin--> switch to doxycycline 100mg BID CXR 2 view- atelectasis, nothing acute--repeat is also stable however tx needed as mycoplasma is + Home meds Daily labs Consult PT/OT/CM DVT/GI prophylaxis Patient is doing well with good response, will plan [place] [facility]. Patient is DNR code status PCP is Dr Hand with [facility] in [place]. - Patient Instructions Diet: Diabetic Diet Activity: As Tolerated Driving: Do Not Drive Showering/Bathing: May Shower Notify Provider of: Fever, Increased Pain, Swelling and Redness, Nausea and/or Vomiting - Discharge Plan Prescriptions/Med Rec: Codeine/guaiFENesin [Robitussin AC] 5 ml PO Q4H PRN #4 oz PRN Reason: Cough Doxycycline Calcium [IMW: Doxycycline] 100 mg PO BID #12 capsule Saccharomyces Boulardii [Florastor] 250 mg PO DAILY #30 cap Home Medications: Home Meds Aspirin [Rosario Chewable Aspirin] 81 mg PO DAILY 03/19/14 [History] Oxybutynin [Oxybutynin ER] 10 mg PO BEDTIME 03/19/14 [History] atorvaSTATin [Lipitor] 20 mg PO DAILY 03/19/14 [History] traZODone 300 mg PO DAILY 03/19/14 [History] Acetaminophen [Tylenol] 650 mg PO DAILY 04/05/17 [History] Albuterol [Ventolin HFA] 2 puff INH BEDTIME 04/05/17 [History] Albuterol [Ventolin HFA] 2 puff INH Q4H PRN 04/05/17 [History] Cholecalciferol (Vitamin D3) [Vitamin D3] 5,000 units PO DAILY 04/05/17 [History ] Cranberry Conc/C/Bacill Coag [Cranberry Tablet] 1 tab PO BID 04/05/17 [History] Cyanocobalamin (Vitamin B12) [Vitamin B12] 1,000 mcg PO DAILY 04/05/17 [History] Docusate Sodium [Colace] 100 mg PO BID 04/05/17 [History] Liraglutide [Victoza] 1.2 mg SUBCUT BEDTIME 04/05/17 [History] Metoprolol Succinate [Toprol XL] 75 mg PO DAILY 04/05/17 [History] OLANZapine [ZyPREXA] 20 mg PO BID 04/05/17 [History] Omeprazole 20 mg PO DAILY 04/05/17 [History] metFORMIN [Glucophage XR] 1,000 mg PO BID 04/05/17 [History] Albuterol Sulfate 2.5 mg IH QID PRN 06/10/17 [History] Benzonatate 100 mg PO TID PRN 06/10/17 [History] Gentamicin Sulfate/PF [Gentamicin] 3 drop EYELF BID 06/10/17 [History] guaiFENesin [Mucinex] 600 mg PO BID 06/10/17 [History] Amantadine HCl [Amantadine] 100 mg PO DAILY 06/13/17 [History] Budesonide [Pulmicort] 0.5 mg IH Q12H 06/13/17 [History] LORazepam 2 mg PO TID 06/13/17 [History] fluPHENAZine HCl [fluPHENAZine] 5 mg PO DAILY 06/13/17 [History] fluPHENAZine HCl [fluPHENAZine] 15 mg PO BEDTIME 06/13/17 [History] Codeine/guaiFENesin [Robitussin AC] 5 ml PO Q4H PRN #4 oz 06/14/17 [Rx] Doxycycline Calcium [IMW: Doxycycline] 100 mg PO BID #12 capsule 06/14/17 [Rx] Saccharomyces Boulardii [Florastor] 250 mg PO DAILY #30 cap 06/14/17 [Rx] Patient Handouts: Liver Function Tests, Community-Acquired Pneumonia, Adult, [id number] Forms: ED Department Discharge Referrals: Paco Hand MD [Primary Care Provider] - (Follow-up in 1 week.) - Discharge Summary/Plan Comment DC Time >30 min.: Yes (40 min) - General Info Date of Service: 06/14/17 Admission Dx/Problem (Free Text: Doing well, still coughing but overall improved. VSS/afebrile. Sitting up in bed, conversing this morning. Plans for DC back to [place] today. Functional Status: Reports: Pain Controlled, Tolerating Diet, Ambulating, Urinating. Denies: New Symptoms - Review of Systems General: Reports: Weakness (improved), Fatigue (improved). Denies: Fever HEENT: Reports: No Symptoms Pulmonary: Reports: Shortness of Breath (minimal after coughing spells), Cough ( improved). Denies: Sputum Cardiovascular: Reports: No Symptoms Gastrointestinal: Reports: No Symptoms. Denies: Diarrhea, Nausea, Vomiting Genitourinary: Reports: No Symptoms Neurological: Reports: No Symptoms - Patient Data Vitals - Most Recent: Last Vital Signs Temp 98.1 F 06/14/17 02:16 Pulse 87 06/14/17 02:16 Resp 20 06/14/17 02:16 BP 143/78 H 06/14/17 02:16 Pulse Ox 93 L 06/14/17 05:48 Weight - Most Recent: 219 lb 9 oz I&O - Last 24 hours: Intake & Output 06/13/17 06/14/17 06/14/17 22:59 06:59 14:59 Intake Total 1180 400 Output Total 400 1400 Balance 780 -1000 Lab Results - Last 24 hrs: Laboratory Results - last 24 hr 06/13/17 06/13/17 06/13/17 Range/Units 06:24 06:24 06:24 WBC 6.58 (3.98-10.04) K/mm3 RBC 4.43 (3.98-5.22) M/mm3 Hgb 12.1 (11.2-15.7) gm/L Hct 38.8 (34.1-44.9) % MCV 87.6 (79.4-94.8) fl MCH 27.3 (25.6-32.2) pg MCHC 31.2 L (32.2-35.5) g/dl RDW Std Deviation 46.8 H (36.4-46.3) fL Plt Count 202 (182-369) K/mm3 MPV 10.5 (9.4-12.3) fl Neut % (Auto) 64.9 (34.0-71.1) % Lymph % (Auto) 18.8 L (19.3-51.7) % [place] % (Auto) 11.4 (4.7-12.5) % Eos % (Auto) 0.2 L (0.7-5.8) Baso % (Auto) 0.3 (0.1-1.2) % Neut # (Auto) 4.27 (1.56-6.13) K/mm3 Lymph # (Auto) 1.24 (1.18-3.74) K/mm3 [place] # (Auto) 0.75 H (0.24-0.36) K/mm3 Eos # (Auto) 0.01 L (0.04-0.36) K/mm3 Baso # (Auto) 0.02 (0.01-0.08) K/mm3 Manual Slide Review Abnormal smear Sodium 142 (136-145) mEq/L Potassium 4.1 (3.5-5.1) mEq/L Chloride 105 (98-107) mEq/L Carbon Dioxide 25 (21-32) mEq/L Anion Gap 16.1 H (5-15) BUN 13 (7-18) mg/dL Creatinine 0.7 (0.55-1.02) mg/dL Est Cr Clr Drug Dosing 67.59 mL/min Estimated GFR (MDRD) > 60 (>60) mL/min BUN/Creatinine Ratio 18.6 H (14-18) Glucose 170 H (74-106) mg/dL POC Glucose (70-105) mg/dL Lactic Acid 1.5 (0.4-2.0) mmol/L Calcium 8.8 (8.5-10.1) mg/dL Magnesium 1.9 (1.8-2.4) mg/dl C-Reactive Protein 0.6 (<1.0) mg/dL 06/13/17 06/13/17 06/13/17 Range/Units 10:49 16:57 21:07 WBC (3.98-10.04) K/mm3 RBC (3.98-5.22) M/mm3 Hgb (11.2-15.7) gm/L Hct (34.1-44.9) % MCV (79.4-94.8) fl MCH (25.6-32.2) pg MCHC (32.2-35.5) g/dl RDW Std Deviation (36.4-46.3) fL Plt Count (182-369) K/mm3 MPV (9.4-12.3) fl Neut % (Auto) (34.0-71.1) % Lymph % (Auto) (19.3-51.7) % [place] % (Auto) (4.7-12.5) % Eos % (Auto) (0.7-5.8) Baso % (Auto) (0.1-1.2) % Neut # (Auto) (1.56-6.13) K/mm3 Lymph # (Auto) (1.18-3.74) K/mm3 [place] # (Auto) (0.24-0.36) K/mm3 Eos # (Auto) (0.04-0.36) K/mm3 Baso # (Auto) (0.01-0.08) K/mm3 Manual Slide Review Sodium (136-145) mEq/L Potassium (3.5-5.1) mEq/L Chloride (98-107) mEq/L Carbon Dioxide (21-32) mEq/L Anion Gap (5-15) BUN (7-18) mg/dL Creatinine (0.55-1.02) mg/dL Est Cr Clr Drug Dosing mL/min Estimated GFR (MDRD) (>60) mL/min BUN/Creatinine Ratio (14-18) Glucose (74-106) mg/dL POC Glucose 149 H 136 H 178 H (70-105) mg/dL Lactic Acid (0.4-2.0) mmol/L Calcium (8.5-10.1) mg/dL Magnesium (1.8-2.4) mg/dl C-Reactive Protein (<1.0) mg/dL 06/14/17 06/14/17 06/14/17 Range/Units 05:47 05:47 06:10 WBC 6.89 (3.98-10.04) K/mm3 RBC 4.35 (3.98-5.22) M/mm3 Hgb 12.1 (11.2-15.7) gm/L Hct 38.2 (34.1-44.9) % MCV 87.8 (79.4-94.8) fl MCH 27.8 (25.6-32.2) pg MCHC 31.7 L (32.2-35.5) g/dl RDW Std Deviation 46.4 H (36.4-46.3) fL Plt Count 188 (182-369) K/mm3 MPV 10.4 (9.4-12.3) fl Neut % (Auto) 67.8 (34.0-71.1) % Lymph % (Auto) 18.3 L (19.3-51.7) % [place] % (Auto) 8.6 (4.7-12.5) % Eos % (Auto) 0.1 L (0.7-5.8) Baso % (Auto) 0.6 (0.1-1.2) % Neut # (Auto) 4.67 (1.56-6.13) K/mm3 Lymph # (Auto) 1.26 (1.18-3.74) K/mm3 [place] # (Auto) 0.59 H (0.24-0.36) K/mm3 Eos # (Auto) 0.01 L (0.04-0.36) K/mm3 Baso # (Auto) 0.04 (0.01-0.08) K/mm3 Manual Slide Review Abnormal smear Sodium 140 (136-145) mEq/L Potassium 4.3 (3.5-5.1) mEq/L Chloride 104 (98-107) mEq/L Carbon Dioxide 25 (21-32) mEq/L Anion Gap 15.3 H (5-15) BUN 12 (7-18) mg/dL Creatinine 0.6 (0.55-1.02) mg/dL Est Cr Clr Drug Dosing 78.86 mL/min Estimated GFR (MDRD) > 60 (>60) mL/min BUN/Creatinine Ratio 20.0 H (14-18) Glucose 175 H (74-106) mg/dL POC Glucose (70-105) mg/dL Lactic Acid 1.2 (0.4-2.0) mmol/L Calcium 9.0 (8.5-10.1) mg/dL Magnesium 1.9 (1.8-2.4) mg/dl C-Reactive Protein 1.8 H* (<1.0) mg/dL 06/14/17 Range/Units 06:21 WBC (3.98-10.04) K/mm3 RBC (3.98-5.22) M/mm3 Hgb (11.2-15.7) gm/L Hct (34.1-44.9) % MCV (79.4-94.8) fl MCH (25.6-32.2) pg MCHC (32.2-35.5) g/dl RDW Std Deviation (36.4-46.3) fL Plt Count (182-369) K/mm3 MPV (9.4-12.3) fl Neut % (Auto) (34.0-71.1) % Lymph % (Auto) (19.3-51.7) % [place] % (Auto) (4.7-12.5) % Eos % (Auto) (0.7-5.8) Baso % (Auto) (0.1-1.2) % Neut # (Auto) (1.56-6.13) K/mm3 Lymph # (Auto) (1.18-3.74) K/mm3 [place] # (Auto) (0.24-0.36) K/mm3 Eos # (Auto) (0.04-0.36) K/mm3 Baso # (Auto) (0.01-0.08) K/mm3 Manual Slide Review Sodium (136-145) mEq/L Potassium (3.5-5.1) mEq/L Chloride (98-107) mEq/L Carbon Dioxide (21-32) mEq/L Anion Gap (5-15) BUN (7-18) mg/dL Creatinine (0.55-1.02) mg/dL Est Cr Clr Drug Dosing mL/min Estimated GFR (MDRD) (>60) mL/min BUN/Creatinine Ratio (14-18) Glucose (74-106) mg/dL POC Glucose 174 H (70-105) mg/dL Lactic Acid (0.4-2.0) mmol/L Calcium (8.5-10.1) mg/dL Magnesium (1.8-2.4) mg/dl C-Reactive Protein (<1.0) mg/dL [facility] Results - Last 24 hrs: Microbiology 06/11/17 14:00 Respiratory Virus Panel (PCR) ([facility]) - Final Nasopharyngeal Swab - Nare, Unspecified Med Orders - Current: Current Medications Acetaminophen (Tylenol) 650 mg PO Q6H PRN PRN Reason: Pain/Fever Last Admin: 06/10/17 21:49 Dose: 650 mg Albuterol (Proventil Neb Soln) 2.5 mg NEB Q4HRRT PRN PRN Reason: Shortness of Breath Last Admin: 06/11/17 03:18 Dose: 2.5 mg Albuterol/Ipratropium (Duoneb 3.0-0.5 Mg/3 Ml) 3 ml NEB QIDRT [facility] Last Admin: 06/14/17 05:47 Dose: 3 ml Amantadine HCl (Symmetrel) 100 mg PO DAILY [facility] Aspirin (Aspirin) 81 mg PO DAILY [facility] Last Admin: 06/13/17 08:40 Dose: 81 mg Benzonatate (Tessalon Perles) 200 mg PO BID PRN PRN Reason: Cough Last Admin: 06/13/17 21:09 Dose: 200 mg Budesonide (Pulmicort) 0.5 mg NEB Q12H [facility] Cholecalciferol (Vitamin D3) 5,000 units PO DAILY [facility] Last Admin: 06/13/17 08:40 Dose: 5,000 units Cyanocobalamin (Vitamin B12) 1,000 mcg PO DAILY [facility] Last Admin: 06/13/17 08:41 Dose: 1,000 mcg Dextrose/Water (Dextrose 50% In Water) 50 ml IVPUSH ASDIRECTED PRN PRN Reason: Hypoglycemia Docusate Sodium (Colace) 100 mg PO BID [facility] Last Admin: 06/13/17 21:06 Dose: 100 mg Doxycycline Hyclate (Vibramycin) 100 mg PO BID [facility] Last Admin: 06/13/17 21:08 Dose: 100 mg Enoxaparin Sodium (Lovenox) 40 mg SUBCUT DAILY [facility] Last Admin: 06/13/17 08:41 Dose: 40 mg Fluphenazine HCl (Fluphenazine Hcl) 15 mg PO BEDTIME [facility] Last Admin: 06/13/17 21:06 Dose: 15 mg Fluphenazine HCl (Fluphenazine Hcl) 5 mg PO DAILY [facility] Fluphenazine HCl (Fluphenazine Hcl) 15 mg PO BEDTIME [facility] Gentamicin Sulfate (Garamycin 0.3% Oph Soln) 0 ml EYELF BID [facility] Last Admin: 06/13/17 21:04 Dose: 1 drop Guaifenesin (Mucinex) 600 mg PO BID [facility] Last Admin: 06/13/17 21:07 Dose: 600 mg Guaifenesin/Codeine Phosphate (Robitussin Ac) 5 ml PO Q4H PRN PRN Reason: Cough Insulin Aspart (Novolog) 0 unit SUBCUT QIDACANDBED [facility] PRN Reason: Protocol Last Admin: 06/13/17 21:07 Dose: 1 unit Metformin HCl (Glucophage) 1,000 mg PO BID [facility] Last Admin: 06/13/17 21:05 Dose: 1,000 mg Metoprolol Succinate (Toprol Xl) 75 mg PO DAILY [facility] Last Admin: 06/13/17 08:44 Dose: 75 mg Mometasone Furoate/Formoterol Fumar (Dulera 200-5 Mcg) 0 puff IH BID [facility] Last Admin: 06/13/17 20:53 Dose: 2 puff Non-Formulary Medication (Lorazepam [Lorazepam]) 2 mg PO TID [facility] Olanzapine (Zyprexa) 20 mg PO BID [facility] Last Admin: 06/13/17 21:05 Dose: 20 mg Oxybutynin Chloride (Oxybutynin Er) 10 mg PO BEDTIME [facility] Last Admin: 06/13/17 21:06 Dose: 10 mg Pantoprazole Sodium (Protonix) 40 mg PO DAILY [facility] Last Admin: 06/13/17 08:42 Dose: 40 mg Saccharomyces Boulardii (Florastor) 250 mg PO DAILY [facility] Last Admin: 06/13/17 08:40 Dose: 250 mg Simvastatin (Zocor) 20 mg PO BEDTIME [facility] Last Admin: 06/13/17 21:06 Dose: 20 mg Sodium Chloride (Saline Flush) 10 ml FLUSH ASDIRECTED PRN PRN Reason: Keep Vein Open Last Admin: 06/10/17 18:28 Dose: 10 ml Trazodone HCl (Trazodone) 300 mg PO DAILY [facility] Last Admin: 06/13/17 08:42 Dose: 300 mg Discontinued Medications Albuterol/Ipratropium (Duoneb 3.0-0.5 Mg/3 Ml) 3 ml NEB ONETIME ONE Stop: 06/10/17 18:05 Last Admin: 06/10/17 18:43 Dose: 3 ml Albuterol/Ipratropium (Duoneb 3.0-0.5 Mg/3 Ml) 3 ml NEB QID [facility] Last Admin: 06/11/17 20:23 Dose: 3 ml Benzonatate (Tessalon Perles) 100 mg PO TID PRN PRN Reason: Cough Budesonide/Formoterol Fumarate (Symbicort 160-4.5 Mcg) 0 gm INH BID [facility] Last Admin: 06/10/17 23:36 Dose: Not Given Sodium Chloride (Normal Saline) 1,000 mls @ 125 mls/hr IV ASDIRECTED [facility] Last Admin: 06/11/17 09:34 Dose: 125 mls/hr Ceftriaxone Sodium 2 gm/ (Sodium Chloride) 100 mls @ 100 mls/hr IV ONETIME ONE Stop: 06/10/17 19:56 Last Admin: 06/10/17 19:06 Dose: 100 mls/hr Levofloxacin/Dextrose 750 mg/ (Premix) 150 mls @ 100 mls/hr IV Q24H [facility] Stop: 06/13/17 04:00 Last Admin: 06/11/17 21:22 Dose: 100 mls/hr Doxycycline Hyclate 100 mg/ (Sodium Chloride) 100 mls @ 100 mls/hr IV Q12HR [facility] Last Admin: 06/13/17 08:44 Dose: 100 mls/hr Levofloxacin (Levaquin) 750 mg PO Q24H [facility] Non-Formulary Medication (Liraglutide) 1.2 mg SUBCUT BEDTIME [facility] - Exam Quality Assessment: Reports: DVT Prophylaxis General: Reports: Alert, Oriented, Cooperative, No Acute Distress HEENT: Reports: Pupils Equal, EOMI, Mucous Membr. Moist/[place]ap[place] Neck: Reports: Supple Lungs: Reports: Normal Respiratory Effort, Decreased Breath Sounds, Wheezing Cardiovascular: Reports: Regular Rate, Regular Rhythm GI/Abdominal Exam: Normal Bowel Sounds, Soft, Non-Tender (Female) Exam: Deferred Rectal (Female) Exam: Deferred Back Exam: Reports: Normal Inspection Extremities: Normal Inspection, Normal Capillary Refill Neurological: Reports: No New Focal Deficit Psy/Mental Status: Reports: Alert, Normal Affect, Normal Mood *Q Meaningful Use (DIS) - VTE *Q VTE Criteria *Q: - Stroke *Q Stroke Criteria *Q: - AMI *Q AMI Criteria *Q:
[2017-06-14 07:36] VITALS: BP 136/72
[2017-06-14] MEDS: Formoterol/Mometasone 200-5 MCG 8.8 GM Inhaler IH SCH (08:53)
[2017-06-14] MEDS: Insulin Aspart 100 Units/ML 3 ML Pen SUBCUT SCH ×2 (08:59→11:31)
[2017-06-14] MEDS ORDERED: Amantadine 100 MG Cap PO SCH (09:00)
[2017-06-14] MEDS ORDERED: LORazepam 1 MG Tab PO SCH (09:00)
[2017-06-14] MEDS: Enoxaparin 40 MG/0.4 ML Syringe SUBCUT SCH (09:02)
[2017-06-14] MEDS: Docusate Sodium 100 MG Cap PO SCH (09:04)
[2017-06-14] MEDS: Cyanocobalamin (Vitamin B12) 1,000 MCG Tab PO SCH (09:04)
[2017-06-14] MEDS: Doxycycline 100 MG Cap PO SCH (09:04)
[2017-06-14] MEDS: guaiFENesin 600 MG Tab.ER PO SCH (09:10)
[2017-06-14] MEDS: Metoprolol Succinate 25 MG Tab.ER PO SCH (09:13)
[2017-06-14] MEDS: metFORMIN 500 MG Tab PO SCH (09:14)
[2017-06-14] MEDS: traZODone 50 MG Tab PO SCH (09:16)
[2017-06-14] MEDS: OLANZapine 5 MG Tab PO SCH (09:17)
[2017-06-14] MEDS: Cholecalciferol (Vitamin D3) 1,000 Unit Tab PO SCH (09:18)
[2017-06-14] MEDS: Gentamicin 0.3% Ophth Soln 15 ML Bottle EYELF SCH (09:19)
[2017-06-14] MEDS: Aspirin 81 MG Tab.Chew PO SCH (09:20)
[2017-06-14] MEDS: Saccharomyces Boulardii (Probiotic) 250 MG Cap PO SCH (09:20)
[2017-06-14] MEDS: Pantoprazole 40 MG Tab.CR PO SCH (09:21)
== END 2017-06-14 13:16 | DRG 195 ==
LOC: JD.ED 17:40 → JD.MS 20:16
PROVIDERS: ADMIT Internal Medicine Cardiovascular Disease; ATTEND Internal Medicine Cardiovascular Disease
DX: J18.9 Pneumonia, unspecified organism (principal); J15.7 Pneumonia due to Mycoplasma pneumoniae; J40 Bronchitis, not specified as acute or chronic; R09.02 Hypoxemia; R79.89 Other specified abnormal findings of blood chemistry; F20.9 Schizophrenia, unspecified; E11.9 Type 2 diabetes mellitus without complications; E78.5 Hyperlipidemia, unspecified; H54.7 Unspecified visual loss; Z88.0 Allergy status to penicillin; Z88.1 Allergy status to other antibiotic agents; Z88.2 Allergy status to sulfonamides; Z88.8 Allergy status to other drugs, medicaments and biological substances; Z79.84 Long term (current) use of oral hypoglycemic drugs; Z79.82 Long term (current) use of aspirin; Z79.899 Other long term (current) drug therapy
CPT/HCPCS: 36415; 71045; 80053; 81001; 85025; 87040 ×2; 87804 ×2; 94640; 96361; 96365; 99285; J0696; J7030; J7040; J7050; 71046; 71046-26; 80048; 82248; 82962; 83036; 83605; 83735; 86140; 86738; 87486; 87581; 87633; 87641; 87798; 87899; 94664; 94667; 94668; 94760; 94761; A9270; A9270-GY; J1650; J1815-GY; J1956

== ENCOUNTER 2019-08-14 07:51 | Emergency (ER) | payer MEDICARE, BC, MEDICAID ==
[2019-08-14 08:13] VITALS: BP 126/83; PULSE 95
--- NOTE | 2019-08-14 08:31 | EDM.PDOC ---
ED HPI GENERAL MEDICAL PROBLEM - General Chief Complaint: Respiratory Problem Stated Complaint: [facility] Time Seen by Provider: 08/14/19 08:15 Source of Information: Reports: Patient, Custodial Records History Limitations: Reports: No Limitations - History of Present Illness INITIAL COMMENTS - FREE TEXT/NARRATIVE: 64-year-old female presents to the ED per ambulance from [facility] where she resides. Complaint is sore throat starting last evening. She did not have much for breakfast. Painful swallowing. No pain into her ears. Associated productive sounding cough at times. No noted fever or chills. No nausea vomiting or diarrhea. No recent changes to any medications. Onset: Sudden Onset Date: 08/13/19 Onset Time: 07:00 Duration: Hour(s): (Started last night after supper.), Getting Worse Location: Reports: Neck (Throat) Quality: Reports: Ache, Burning, Sharp, Stabbing Severity: Moderate (With swallowing) Improves with: Reports: None Worsens with: Reports: Eating Context: Reports: Other (Spontaneous occurrence). Denies: Activity (Or drinking ), Exercise, Lifting, Sick Contact, Trauma Associated Symptoms: Reports: Cough, cough w sputum, Malaise, Shortness of Breath. Denies: No Other Symptoms, Confusion, Chest Pain, Diaphoresis, Fever/ Chills, Headaches, Loss of Appetite, Nausea/Vomiting, Seizure, Syncope Treatments EXPORT PACKER: Reports: Other (see below) Other Treatments EXPORT PACKER: cough syrup Throat Pain Score (Numeric/FACES): 8 - Related Data Allergies Allergy/AdvReac Type Severity Reaction Status Date / Time clindamycin Allergy Cannot Verified 06/11/17 12:36 Remember clozapine Allergy Cannot Verified 06/11/17 12:36 Remember cortisone Allergy Cannot Verified 06/11/17 12:36 Remember fluoxetine HCl [From Prozac] Allergy Cannot Verified 06/11/17 12:36 Remember hydrocodone Allergy Cannot Verified 06/11/17 12:36 Remember mirtazapine Allergy Cannot Verified 06/11/17 12:36 Remember Penicillins Allergy Cannot Verified 06/11/17 12:36 Remember sulfamethoxazole Allergy Cannot Verified 06/11/17 12:36 [From Bactrim] Remember trimethoprim Allergy Cannot Verified 06/11/17 12:36 Remember metals Allergy Cannot Uncoded 06/11/17 12:36 Remember Home Meds: Home Meds Aspirin [Rosario Chewable Aspirin] 81 mg PO DAILY 03/19/14 [History] Oxybutynin [Oxybutynin ER] 10 mg PO BEDTIME 03/19/14 [History] atorvaSTATin [Lipitor] 20 mg PO DAILY 03/19/14 [History] traZODone 300 mg PO DAILY 03/19/14 [History] Acetaminophen [Tylenol] 650 mg PO DAILY 04/05/17 [History] Albuterol [Ventolin HFA] 2 puff INH BEDTIME 04/05/17 [History] Albuterol [Ventolin HFA] 2 puff INH Q4H PRN 04/05/17 [History] Cholecalciferol (Vitamin D3) [Vitamin D3] 5,000 units PO DAILY 04/05/17 [History ] Cranberry Conc/C/Bacill Coag [Cranberry Tablet] 1 tab PO BID 04/05/17 [History] Cyanocobalamin (Vitamin B12) [Vitamin B12] 1,000 mcg PO DAILY 04/05/17 [History] Docusate Sodium [Colace] 100 mg PO BID 04/05/17 [History] Liraglutide [Victoza] 1.2 mg SUBCUT BEDTIME 04/05/17 [History] Metoprolol Succinate [Toprol XL] 75 mg PO DAILY 04/05/17 [History] OLANZapine [ZyPREXA] 20 mg PO BID 04/05/17 [History] Omeprazole 20 mg PO DAILY 04/05/17 [History] metFORMIN [Glucophage XR] 1,000 mg PO BID 04/05/17 [History] Albuterol Sulfate 2.5 mg IH QID PRN 06/10/17 [History] Benzonatate 100 mg PO TID PRN 06/10/17 [History] Gentamicin Sulfate/PF [Gentamicin] 3 drop EYELF BID 06/10/17 [History] guaiFENesin [Mucinex] 600 mg PO BID 06/10/17 [History] Budesonide [Pulmicort] 0.5 mg IH Q12H 06/13/17 [History] LORazepam 2 mg PO TID 06/13/17 [History] amantadine HCL [Amantadine] 100 mg PO DAILY 06/13/17 [History] fluPHENAZine HCl [fluPHENAZine] 5 mg PO DAILY 06/13/17 [History] fluPHENAZine HCl [fluPHENAZine] 15 mg PO BEDTIME 06/13/17 [History] Codeine/guaiFENesin [Robitussin AC] 5 ml PO Q4H PRN #4 oz 06/14/17 [Rx] Doxycycline Calcium [IMW: Doxycycline] 100 mg PO BID #12 capsule 06/14/17 [Rx] Saccharomyces Boulardii [Florastor] 250 mg PO DAILY #30 cap 06/14/17 [Rx] Albuterol [Proventil Neb Soln] 2.5 mg NEB Q4HRRT #100 cup 08/14/19 [Rx] Cefdinir [Omnicef] 300 mg PO BID #14 cap 08/14/19 [Rx] Past Medical History HEENT History: Reports: Impaired Vision Other Neuro History: mood disorder Psychiatric History: Reports: Schizophrenia, Suicide Attempt Endocrine/Metabolic History: Reports: Diabetes, Type II, Obesity/BMI 30+, Vitamin D Deficiency Hematologic History: Reports: B12 Deficiency - Infectious Disease History Infectious Disease History: Reports: Other (See Below) Other Infectious Disease History: lives in [facility] - Past Surgical History Head Surgeries/Procedures: Reports: None HEENT Surgical History: Reports: Tonsillectomy Social & Family History - Family History Family Medical History: Noncontributory - Tobacco Use Smoking Status *Q: Never Smoker - Caffeine Use Caffeine Use: Reports: Soda - Recreational Drug Use Recreational Drug Use: No - Living Situation & Occupation Living situation: Reports: Extended Care Facility (Living at [facility] [place] for the last 6 months.) Occupation: Unemployed ED ROS GENERAL - Review of Systems Review Of Systems: See Below Constitutional: Reports: Fever (Only had a fever of 100 degrees last evening.), Malaise, Weakness. Denies: Chills, Decreased Appetite HEENT: Reports: Glasses, Throat Pain Respiratory: Reports: Shortness of Breath, Cough, Sputum. Denies: Wheezing, Pleuritic Chest Pain (.), Hemoptysis Cardiovascular: Reports: Blood Pressure Problem, Dyspnea on Exertion. Denies: Claudication, Edema, Lightheadedness, Orthopnea (Chronically), Palpitations Endocrine: Reports: Fatigue GI/Abdominal: Reports: No Symptoms : Reports: No Symptoms Musculoskeletal: Reports: No Symptoms Skin: Reports: No Symptoms Neurological: Reports: No Symptoms Psychiatric: Reports: Other (History of schizophrenia.) Hematologic/Lymphatic: Reports: No Symptoms Immunologic: Reports: No Symptoms ED EXAM, GENERAL - Physical Exam Exam: See Below Exam Limited By: No Limitations General Appearance: Alert, WD/WN, No Apparent Distress, Other (Vital signs show temperature 36.6 with a heart rate of 92 in sinus. Respect rate is 20 BP 149/ 83 O2 sats 92% on room air) Eye Exam: Bilateral Eye: Normal Inspection, PERRL Ears: Normal TMs Throat/Mouth: Normal Lips, Normal Teeth, Other (There is some erythema in the right tonsillar fossa tonsils are gone. Appeared to be early aphthous ulcer formation. Cultures were obtained) Head: Atraumatic, Normocephalic Neck: Normal Inspection, Supple, Non-Tender, Full Range of Motion Respiratory/Chest: Respiratory Distress (Mild tachypnea.), Decreased Breath Sounds (Decreased breath sounds to both lower lung cerna in the 20 percentile.) , Rhonchi. No: Wheezing (Both lower lungs posteriorly. Cough is productive sounding.) Cardiovascular: Normal Peripheral Pulses, Regular Rate, Rhythm, No Edema, No Gallop, No Murmur, No Rub, Systolic Murmur (At the left lower sternal border rating towards the left axilla.) Peripheral Pulses: 2+: Carotid (L), Carotid (R), Posterior Tibial (L), Posterior Tibial (R), Dorsalis Pedis (L), Dorsalis Pedis (R) GI/Abdominal: Normal Bowel Sounds, Soft, Non-Tender, No Organomegaly, No Abnormal Bruit, No Mass, Pelvis Stable, Other. No: Guarding, Rigid (Mildly obese), Rebound, Tender Back Exam: Normal Inspection, Full Range of Motion. No: CVA Tenderness (L), CVA Tenderness (R) Extremities: Normal Inspection, Normal Range of Motion, Non-Tender Neurological: Alert, Oriented, CN II-XII Intact, Normal Cognition Psychiatric: Normal Affect, Normal Mood Skin Exam: Warm, Dry, Intact, Normal Color, No Rash Course - Vital Signs Last Recorded V/S: Last Vital Signs Temp 36.7 C 08/14/19 12:01 Pulse 95 08/14/19 08:12 Resp 19 08/14/19 12:01 BP 126/83 08/14/19 08:12 Pulse Ox 93 L 08/14/19 12:01 - Orders/Labs/Meds Orders: Active Orders 24 hr Category Date Time Status CORONAVIRUS COVID-19 PCR PHL Stat Lab 08/14/19 08:09 Received CULTURE STREP A CONFIRMATION [RM] Stat Lab 08/14/19 08:17 Results CULTURE URINE [] Stat Lab 08/14/19 08:25 Received STREP SCRN A RAPID W CULT CONF [] Stat Lab 08/14/19 08:17 Results Sodium Chloride 0.9% [Normal Saline] 1,000 ml Med 08/14/19 08:45 Active IV ASDIRECTED Isolation [COMM] Routine Oth 08/14/19 09:24 Ordered Medication Orders Sodium Chloride (Normal Saline) 1,000 mls @ 75 mls/hr IV ASDIRECTED RAVINDRA Last Admin: 08/14/19 08:40 Dose: 75 mls/hr Labs: Laboratory Tests 08/14/19 08/14/19 08/14/19 Range/Units 08:04 08:04 08:04 WBC 7.27 (3.98-10.04) K/mm3 RBC 4.57 (3.98-5.22) M/mm3 Hgb 13.0 (11.2-15.7) gm/dl Hct 40.4 (34.1-44.9) % MCV 88.4 (79.4-94.8) fl MCH 28.4 (25.6-32.2) pg MCHC 32.2 (32.2-35.5) g/dl RDW Std Deviation 45.8 (36.4-46.3) fL Plt Count 110 L D (182-369) K/mm3 MPV 11.4 (9.4-12.3) fl Neutrophils % (Manual) 73 H (40-60) % Band Neutrophils % 0 (0-10) % Lymphocytes % (Manual) 10 L (20-40) % Atypical Lymphs % 0 % Monocytes % (Manual) 10 (2-10) % Eosinophils % (Manual) 7 H (0.7-5.8) % Basophils % (Manual) 0 L (0.1-1.2) Platelet Estimate Adequate Hypochromasia 2+ moderate Anisocytosis 2+ moderate Microcytosis 2+ moderate RBC Morph Comment Abnormal PT 10.8 (9.7-12.0) SECONDS INR 0.99 Sodium 143 (136-145) mEq/L Potassium 4.0 (3.5-5.1) mEq/L Chloride 106 (98-107) mEq/L Carbon Dioxide 27 (21-32) mEq/L Anion Gap 14.0 (5-15) BUN 10 (7-18) mg/dL Creatinine 0.7 (0.55-1.02) mg/dL Est Cr Clr Drug Dosing 65.90 mL/min Estimated GFR (MDRD) > 60 (>60) mL/min BUN/Creatinine Ratio 14.3 (14-18) Glucose 122 H (80-115) mg/dL Calcium 9.0 (8.5-10.1) mg/dL Magnesium 1.6 L (1.8-2.4) mg/dl Ferritin (8-252) ng/ml Total Bilirubin 0.6 (0.2-1.0) mg/dL AST 51 H (15-37) U/L ALT 83 H (14-59) U/L Alkaline Phosphatase 165 H (46-116) U/L Lactate Dehydrogenase (81-234) U/L Troponin I < 0.017 (0.00-0.056) ng/mL C-Reactive Protein 1.4 H* (<1.0) mg/dL NT-Pro-B Natriuret Pep (0-125) pg/mL Total Protein 6.7 (6.4-8.2) g/dl Albumin 4.1 (3.4-5.0) g/dl Globulin 2.6 gm/dL Albumin/Globulin Ratio 1.6 (1-2) Urine Color (Yellow) Urine Appearance (Clear) Urine pH (5.0-8.0) Ur Specific Sandy (1.005-1.030) Urine Protein (Negative) Urine Glucose (UA) (Negative) Urine Ketones (Negative) Urine Occult Blood (Negative) Urine Nitrite (Negative) Urine Bilirubin (Negative) Urine Urobilinogen (0.2-1.0) Ur Leukocyte Esterase (Negative) Urine RBC (0-5) /hpf Urine WBC (0-5) /hpf Ur Epithelial Cells (0-5) /hpf Urine Bacteria (FEW) /hpf Urine Mucus (FEW) /hpf SARS-CoV-2 RNA (RT-PCR) (NEGATIVE) 08/14/19 08/14/19 08/14/19 Range/Units 08:04 08:04 08:04 WBC (3.98-10.04) K/mm3 RBC (3.98-5.22) M/mm3 Hgb (11.2-15.7) gm/dl Hct (34.1-44.9) % MCV (79.4-94.8) fl MCH (25.6-32.2) pg MCHC (32.2-35.5) g/dl RDW Std Deviation (36.4-46.3) fL Plt Count (182-369) K/mm3 MPV (9.4-12.3) fl Neutrophils % (Manual) (40-60) % Band Neutrophils % (0-10) % Lymphocytes % (Manual) (20-40) % Atypical Lymphs % % Monocytes % (Manual) (2-10) % Eosinophils % (Manual) (0.7-5.8) % Basophils % (Manual) (0.1-1.2) Platelet Estimate Hypochromasia Anisocytosis Microcytosis RBC Morph Comment PT (9.7-12.0) SECONDS INR Sodium (136-145) mEq/L Potassium (3.5-5.1) mEq/L Chloride (98-107) mEq/L Carbon Dioxide (21-32) mEq/L Anion Gap (5-15) BUN (7-18) mg/dL Creatinine (0.55-1.02) mg/dL Est Cr Clr Drug Dosing mL/min Estimated GFR (MDRD) (>60) mL/min BUN/Creatinine Ratio (14-18) Glucose (80-115) mg/dL Calcium (8.5-10.1) mg/dL Magnesium (1.8-2.4) mg/dl Ferritin 98 (8-252) ng/ml Total Bilirubin (0.2-1.0) mg/dL AST (15-37) U/L ALT (14-59) U/L Alkaline Phosphatase (46-116) U/L Lactate Dehydrogenase 210 (81-234) U/L Troponin I (0.00-0.056) ng/mL C-Reactive Protein (<1.0) mg/dL NT-Pro-B Natriuret Pep 97 (0-125) pg/mL Total Protein (6.4-8.2) g/dl Albumin (3.4-5.0) g/dl Globulin gm/dL Albumin/Globulin Ratio (1-2) Urine Color (Yellow) Urine Appearance (Clear) Urine pH (5.0-8.0) Ur Specific Sandy (1.005-1.030) Urine Protein (Negative) Urine Glucose (UA) (Negative) Urine Ketones (Negative) Urine Occult Blood (Negative) Urine Nitrite (Negative) Urine Bilirubin (Negative) Urine Urobilinogen (0.2-1.0) Ur Leukocyte Esterase (Negative) Urine RBC (0-5) /hpf Urine WBC (0-5) /hpf Ur Epithelial Cells (0-5) /hpf Urine Bacteria (FEW) /hpf Urine Mucus (FEW) /hpf SARS-CoV-2 RNA (RT-PCR) (NEGATIVE) 08/14/19 08/14/19 Range/Units 08:25 10:18 WBC (3.98-10.04) K/mm3 RBC (3.98-5.22) M/mm3 Hgb (11.2-15.7) gm/dl Hct (34.1-44.9) % MCV (79.4-94.8) fl MCH (25.6-32.2) pg MCHC (32.2-35.5) g/dl RDW Std Deviation (36.4-46.3) fL Plt Count (182-369) K/mm3 MPV (9.4-12.3) fl Neutrophils % (Manual) (40-60) % Band Neutrophils % (0-10) % Lymphocytes % (Manual) (20-40) % Atypical Lymphs % % Monocytes % (Manual) (2-10) % Eosinophils % (Manual) (0.7-5.8) % Basophils % (Manual) (0.1-1.2) Platelet Estimate Hypochromasia Anisocytosis Microcytosis RBC Morph Comment PT (9.7-12.0) SECONDS INR Sodium (136-145) mEq/L Potassium (3.5-5.1) mEq/L Chloride (98-107) mEq/L Carbon Dioxide (21-32) mEq/L Anion Gap (5-15) BUN (7-18) mg/dL Creatinine (0.55-1.02) mg/dL Est Cr Clr Drug Dosing mL/min Estimated GFR (MDRD) (>60) mL/min BUN/Creatinine Ratio (14-18) Glucose (80-115) mg/dL Calcium (8.5-10.1) mg/dL Magnesium (1.8-2.4) mg/dl Ferritin (8-252) ng/ml Total Bilirubin (0.2-1.0) mg/dL AST (15-37) U/L ALT (14-59) U/L Alkaline Phosphatase (46-116) U/L Lactate Dehydrogenase (81-234) U/L Troponin I (0.00-0.056) ng/mL C-Reactive Protein (<1.0) mg/dL NT-Pro-B Natriuret Pep (0-125) pg/mL Total Protein (6.4-8.2) g/dl Albumin (3.4-5.0) g/dl Globulin gm/dL Albumin/Globulin Ratio (1-2) Urine Color Yellow (Yellow) Urine Appearance Clear (Clear) Urine pH 6.5 (5.0-8.0) Ur Specific Sandy 1.015 (1.005-1.030) Urine Protein Negative (Negative) Urine Glucose (UA) Negative (Negative) Urine Ketones Negative (Negative) Urine Occult Blood Negative (Negative) Urine Nitrite Positive H (Negative) Urine Bilirubin Negative (Negative) Urine Urobilinogen 0.2 (0.2-1.0) Ur Leukocyte Esterase 1+ H (Negative) Urine RBC Not seen (0-5) /hpf Urine WBC 0-5 (0-5) /hpf Ur Epithelial Cells 0-5 (0-5) /hpf Urine Bacteria Many H (FEW) /hpf Urine Mucus Rare (FEW) /hpf SARS-CoV-2 RNA (RT-PCR) Negative (NEGATIVE) Meds: Medications Generic Name Dose Route Start Last Admin Trade Name Freq PRN Reason Stop Dose Admin Sodium Chloride 1,000 mls @ 75 mls/hr 08/14/19 08:45 08/14/19 08:40 Normal Saline IV 75 mls/hr ASDIRECTED RAVINDRA Administration Discontinued Medications Generic Name Dose Route Start Last Admin Trade Name Freq PRN Reason Stop Dose Admin Sodium Chloride Confirm 08/14/19 08:32 08/14/19 08:40 Normal Saline Administered 08/14/19 08:33 Not Given Dose 1,000 mls @ as directed .ROUTE .STK-MED ONE Ceftriaxone Sodium 1 gm/ 100 mls @ 200 mls/hr 05/06/20 10:22 08/14/19 10:45 Sodium Chloride IV 08/14/19 10:51 200 mls/hr ONETIME ONE Administration Ibuprofen 600 mg 08/14/19 08:32 08/14/19 08:40 Motrin PO 08/14/19 08:33 600 mg ONETIME ONE Administration - Radiology Interpretation Free Text/Narrative:: 64-year-old female presents to the ED with apparently spiking a fever of 100 degrees last evening while at the [facility] [place] where she resides. Development of a harsh paroxysmal productive sounding cough and clinically she has rhonchi both lower lobes. Not bringing up any phlegm. Afebrile at the time she was seen. She does have some mild erythema in the right peritonsillar fossa which resemble aphthous ulcer formation. Lives in the half-way COVID- 19 testing will be obtained as well as influenza screen. She is not febrile at this time. Is unclear when she took her last dose of Motrin or Tylenol. IV will be normal saline at 100 mils per hour. Chest x-ray to be done. Rapid strep screen obtained. - Re-Assessments/Exams Free Text/Narrative Re-Assessment/Exam: 08/14/19 09:08 audible chest x-ray reveals poor inspirational view. Right hemidiaphragm appears to be mildly elevated. There is slight haziness along the medial component of the hemidiaphragm and diffuse vascular congestion pattern. Is mild bibasilar atelectasis. Cardiac silhouette is normal. No pneumonia is evident. 08/14/19 10:03 Influenza screen came back negative as did the rapid strep screen. White blood cell count is 7.27 with 73% neutrophils and no bands cells reported. Hemoglobin is 13.0 with hematocrit of 40.4. Platelet counts 110, 000. There is 7% eosinophils which is high. The slide shows 2+ hypochromasia 2 + anisocytosis and 2+ microcytosis. PT is 10.8 with an INR of 0.99. Sodium 143 with a potassium of 4.0. Chloride 106 with a bicarb of 27 anion gap of 14.0 with a BUN of 10. Creatinine is 0.7. Glucose 122 calcium 9.0 magnesium slightly low at 1.6. Bilirubin is 0.6 AST slightly elevated at 51 as is the ALT at 83. Alk phosphatase is 165. Troponin is less than 0.017.. C-reactive protein 1.4. BUN is 97. Total protein is 6.7 with an albumin fraction of 4.1. Analysis is positive for nitrates 1+ leukocyte esterase with many bacteria seen. The micro does not show any pus cells. Urine culture will be ordered . Rapid strep screen came back negative as well. 08/14/19 10:38 Rapid coronavirus testing is negative. Will be to give her 1 g of Rocephin IV to cover for urinary tract infection and also sore throat which may be viral in origin. She will be discharged back to [facility] [place] in [facility]. I will place her on albuterol nebs every 4 hours as needed for cough and congestion. She will be placed on antibiotic Omnicef 300 mg twice daily for 7 days to clear up urinary tract infection. 08/14/19 12:02 repeat temperature is 98.0. Departure - Departure Time of Disposition: 13:00 Disposition: DC/Tfer to [facility] Condition: Fair Clinical Impression: Upper respiratory tract infection Qualifiers: URI type: unspecified viral URI Qualified Code(s): J06.9 - Acute upper respiratory infection, unspecified Urinary tract infection Qualifiers: Urinary tract infection type: site unspecified Hematuria presence: without hematuria Qualified Code(s): N39.0 - Urinary tract infection, site not specified - Discharge Information *PRESCRIPTION DRUG MONITORING PROGRAM REVIEWED*: Not Applicable *COPY OF PRESCRIPTION DRUG MONITORING REPORT IN PATIENT BARBRA: Not Applicable Prescriptions: Albuterol [Proventil Neb Soln] 2.5 mg NEB Q4HRRT #100 cup Cefdinir [Omnicef] 300 mg PO BID #14 cap Instructions: Urinary Tract Infection, Adult, [id number], Upper Respiratory Infection, Adult, [id number] Referrals: Paco Hand MD [Primary Care Provider] - Forms: ED Department Discharge Additional Instructions: Evaluation in the emergency room today in regards to development of fever overnight with associated with a harsh paroxysmal productive sounding cough but no sputum production. Associated sore throat. X-ray done reveals no evidence of pneumonia. No wheezing present. Mild inflammation of the right peritonsillar fossa identified but rapid strep came back negative. Influenza screen negative and COVID-19 testing came back negative as well. Labs do reveal a normal white count and you do in fact have a low-grade urinary tract infection. Meant in the ED was initial dose of antibiotic with Rocephin 1 g intravenously. That home will be antibiotic Omnicef 300 mg twice daily for the next 7 days to clear up urinary tract infection. It is most likely that upper respiratory tract infection is viral in origin but the antibiotic would cover for any bacterial pathogens that could affect the airway as well. Is using albuterol neb treatment 1 Nebules every 4-6 hours necessary for relief of congested cough wheezing and/or shortness of breath. Follow-up with personal care physician within the next week continue Tylenol 650 mg every 4-6 hours necessary for fever relief. She is to be reviewed if she still running a temperature and 72 hours. No fever was ever identified in the ED without any antipyretic treatment. Sepsis Event Note - Evaluation Sepsis Screening Result: Possible Sepsis Risk - Focused Exam Vital Signs: Vital Signs Temp Pulse Resp BP Pulse Ox 08/14/19 12:01 36.7 C 19 93 L 08/14/19 08:12 36.6 C 95 20 126/83 91 L 08/14/19 07:57 36.6 C 92 20 149/83 H 92 L Date Exam was Performed: 08/14/19 Time Exam was Performed: 13:08 - My Orders Last 24 Hours: My Active Orders 08/14/19 08:09 CORONAVIRUS COVID-19 PCR PHL Stat 08/14/19 08:17 CULTURE STREP A CONFIRMATION [RM] Stat STREP SCRN A RAPID W CULT CONF [RM] Stat 08/14/19 08:25 CULTURE URINE [RM] Stat 08/14/19 08:45 Sodium Chloride 0.9% [Normal Saline] 1,000 ml IV ASDIRECTED 08/14/19 09:24 Isolation [COMM] Routine - Assessment/Plan Last 24 Hours: My Active Orders 08/14/19 08:09 CORONAVIRUS COVID-19 PCR PHL Stat 08/14/19 08:17 CULTURE STREP A CONFIRMATION [RM] Stat STREP SCRN A RAPID W CULT CONF [RM] Stat 08/14/19 08:25 CULTURE URINE [RM] Stat 08/14/19 08:45 Sodium Chloride 0.9% [Normal Saline] 1,000 ml IV ASDIRECTED 08/14/19 09:24 Isolation [COMM] Routine
[2019-08-14] MEDS ORDERED: Sodium Chloride 0.9% 1,000 ML ONE (08:32)
[2019-08-14] MEDS ORDERED: Ibuprofen 600 MG Tab PO ONE (08:32)
[2019-08-14] MEDS ORDERED: Sodium Chloride 0.9% 1,000 ML IV SCH (08:45)
--- NOTE | 2019-08-14 09:54 | CR ---
Chest: Portable view of the chest was obtained. Comparison: Prior chest x-ray of 06/10/17. Slight atelectasis is seen within both lung bases. Lungs otherwise are clear. Heart size and mediastinum are normal. Bony structures are grossly intact. Impression: 1. Mild bibasilar atelectasis. 2. Nothing acute is seen on portable chest x-ray. Diagnostic code #2 This report was dictated in MDT
[2019-08-14] MEDS ORDERED: cefTRIAXone 1 GM in Sodium Chloride 0.9% 100 ML IV ONE (10:22)
== END 2019-08-14 12:55 ==
LOC: JD.ED 07:51
DX: J06.9 Acute upper respiratory infection, unspecified (principal); N39.0 Urinary tract infection, site not specified; E11.9 Type 2 diabetes mellitus without complications; F20.9 Schizophrenia, unspecified; E66.9 Obesity, unspecified; Z88.1 Allergy status to other antibiotic agents; Z88.8 Allergy status to other drugs, medicaments and biological substances; Z88.2 Allergy status to sulfonamides; Z91.040 Latex allergy status; Z88.5 Allergy status to narcotic agent; Z79.82 Long term (current) use of aspirin; Z79.899 Other long term (current) drug therapy; Z79.2 Long term (current) use of antibiotics; Z79.84 Long term (current) use of oral hypoglycemic drugs; Z68.38 Body mass index [BMI] 38.0-38.9, adult; Z20.828 Contact with and (suspected) exposure to other viral communicable diseases
CPT/HCPCS: 36415; 71045; 80053; 81001; 82728; 83615; 83735; 83880; 84484; 85007; 85027; 85610; 86140; 87081; 87086; 87088; 87186; 87430; 87804; 96365; 99284; A9270; J0696; J7030; J7050; U0002

== ENCOUNTER 2022-01-19 01:03 | Emergency (ER) | payer MEDICARE, BC, MEDICAID ==
[2022-01-19 01:24] VITALS: BP 152/67; PULSE 99
[2022-01-19] MEDS ORDERED: Sodium Chloride 0.9% 10 ML Syringe FLUSH PRN (02:08)
[2022-01-19] MEDS ORDERED: Sodium Chloride 0.9% 1,000 ML IV SCH (02:15)
[2022-01-19] MEDS ORDERED: Sodium Chloride 0.9% 10 ML Syringe FLUSH ONE (03:35)
[2022-01-19] MEDS ORDERED: Iopamidol 612 MG/ML 100 ML Bottle IVPUSH ONE (03:35)
[2022-01-19] MEDS ORDERED: Cefdinir 300 MG Cap PO ONE (05:00)
== END 2022-01-19 07:20 | disposition home or self-care (01) ==
LOC: JD.ED 01:03
DX: N39.0 Urinary tract infection, site not specified (principal); R74.01 Elevation of levels of liver transaminase levels; I25.10 Atherosclerotic heart disease of native coronary artery without angina pectoris; E78.00 Pure hypercholesterolemia, unspecified; I10 Essential (primary) hypertension; E11.9 Type 2 diabetes mellitus without complications; E66.9 Obesity, unspecified; Z68.37 Body mass index [BMI] 37.0-37.9, adult; Z88.1 Allergy status to other antibiotic agents; Z88.0 Allergy status to penicillin; Z91.048 Other nonmedicinal substance allergy status; Z79.82 Long term (current) use of aspirin; Z79.899 Other long term (current) drug therapy
CPT/HCPCS: 36415; 74177; 80053; 81001; 83690; 83735; 85025; 87086; 87088; 87186; 99285; J3490

== ENCOUNTER 2022-02-16 15:37 | Emergency (ER) | payer MEDICARE, BC, MEDICAID ==
[2022-02-16 15:55] VITALS: BP 133/65; PULSE 94
[2022-02-16] MEDS ORDERED: Ondansetron 4 MG/2 ML SDV IVPUSH ONE (16:05)
[2022-02-16] MEDS ORDERED: Sodium Chloride 0.9% 1,000 ML IV STA (16:05)
[2022-02-16] MEDS: Sodium Chloride 0.9% 10 ML Syringe FLUSH PRN ×2 (16:06→17:41)
[2022-02-16] MEDS ORDERED: Ketorolac 30 MG/ML SDV IVPUSH ONE (16:07)
[2022-02-16] MEDS ORDERED: HYDROmorphone 0.5 MG/0.5 ML Syringe IVPUSH ONE (16:11)
[2022-02-16] MEDS ORDERED: Iopamidol 612 MG/ML 100 ML Bottle IVPUSH ONE (17:25)
[2022-02-16] MEDS ORDERED: Cefdinir 300 MG Cap PO ONE (22:04)
[2022-02-16] MEDS ORDERED: traZODone 50 MG Tab PO ONE (22:19)
[2022-02-16] MEDS ORDERED: Insulin Glargine,Human Rec. Analog 100 Units/ML 3 ML Pen SUBCUT ONE (22:19)
== END 2022-02-16 23:00 ==
LOC: JD.ED 15:37
DX: N13.2 Hydronephrosis with renal and ureteral calculous obstruction (principal); I25.10 Atherosclerotic heart disease of native coronary artery without angina pectoris; E78.00 Pure hypercholesterolemia, unspecified; I10 Essential (primary) hypertension; E11.9 Type 2 diabetes mellitus without complications; E66.9 Obesity, unspecified; Z68.41 Body mass index [BMI] 40.0-44.9, adult; Z88.1 Allergy status to other antibiotic agents; Z88.8 Allergy status to other drugs, medicaments and biological substances; Z88.5 Allergy status to narcotic agent; Z88.0 Allergy status to penicillin; Z88.2 Allergy status to sulfonamides; Z91.048 Other nonmedicinal substance allergy status; Z79.82 Long term (current) use of aspirin; Z79.899 Other long term (current) drug therapy; Z20.822 Contact with and (suspected) exposure to COVID-19
CPT/HCPCS: 36415; 74177; 80053; 81001; 82947; 85025; 86140; 87086; 87088; 87186; 96361; 96374; 96375; 99284; A9270; J1170; J1815; J2405; J3490; J7030; Q9967; U0002